=== PATIENT | female | born 1945 | race Caucasian/White ===

== ENCOUNTER 2023-10-06 12:22 | Emergency (ER) | payer MEDICARE, OTHER, SELFPAY ==
[2023-10-06] VITALS (13 sets, daily range): BP systolic 152–208; BP diastolic 58–108; PULSE 67–79; RESP 12–23; TEMP 36.6; O2SAT 95–98
--- NOTE | 2023-10-06 12:30 | RT.EKG_ITS ---
APPROVED REPORT Exam: Resting ECG Reason for Exam: Dizziness Patient Location: E HR:65 bpm ECG Measurements Heart Rate 65 AXIS UT 223 P 23 QRSd 139 QRS -44 QT 424 T 125 QTc 440 Conclusion Sinus rhythm...normal P axis, V-rate 60- 99 Prolonged UT interval...UT >220, V-rate 50- 90 Left bundle branch block...QRSd>120, broad/notched R sinus rhtyhm, left axis, LBBB
--- NOTE | 2023-10-06 12:34 | ED.GENADUL_ITS ---
Discharge Plan Disposition Patient Disposition: Home Condition: Stable Discharge Details Clinical Impression: Dizziness of unknown cause Primary Care Provider: Cherry,Local ED Provider: Jeffrey Altamirano Home Meds and New Rx's Prescriptions: Continued atorvastatin 40 mg tablet 40 mg PO DAILY aspirin [Adult Low Dose Aspirin] 81 mg tablet,delayed release (DR/EC) 81 mg PO DAILY midodrine 5 mg tablet 5 mg PO TID Rx Instructions: do not give last dose of day after 6PM or within 4 hrs of bedtime clopidogrel 75 mg tablet 75 mg PO DAILY pantoprazole [Protonix] 40 mg tablet,delayed release (DR/EC) 40 mg PO DAILY fludrocortisone 0.1 mg tablet 0.1 mg PO DAILY cyanocobalamin (vitamin B-12) 1,000 mcg tablet 1,000 mcg PO QMONTH C Complex 1,000 mg tablet extended release 1,000 mg PO DAILY cholecalciferol (vitamin D3) [D3 DOTS] 50 mcg (2,000 unit) tablet 50 mcg PO DAILY Mag Glycinate 100 mg tablet 200 mg PO DAILY levothyroxine [Levo-T] 50 mcg tablet 50 mcg PO DAILY Discharge Instructions Instructions: Dizziness (ED) Additional Instructions: You were seen in the emergency department for your dizziness that is mechelle rodriguez. You state that you have dizziness when he stands up too fast with known orthostatic hypotension, you have known congestive heart failure and a history of TIAs. You are on optimal therapy for transient ischemic attack including high-dose statin as well as aspirin and clopidogrel which is dual antiplatelet therapy and not anticoagulation/blood thinners. Your cardiac workup is negative, you have a mild increase of your BNP which is a marker of heart failure but this is nonspecific and you have no evidence of pulmonary edema on chest x-ray, your chronic heart failure may be playing a role in your dizziness as your heart is failing to keep your brain oxygenated when you change positions. You chose not to be admitted for transient ischemic attack for an MRI. You wished to be discharged home, you engaged in shared decision-making and risk decision making and understood that you need to return to the emergency department immediately for any symptoms of neurological changes and that this is a time sensitive presentation to the ED for any suspicion of stroke, we discussed 4-hour window for intervention of any stroke. I think you need to speak with your PCP about getting a prior authorization done for an MRI/MRA of your Head & Neck. 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 This is a normal anatomical variant in something like 5% of the general population. This may be contributing to transient dizziness, especially coupled with heart failure and orthostatic hypotension. Please follow-up with your primary care provider, you may attempt to have an outpatient MRI done while here in [place], this would have been the final study performed through an inpatient admission, if you wished to be admitted for po ssible TIA. Referrals: Prachi Skinner NP [NURSE PRACTITIONER] - Discharge Data Discharge Date/Time-TO BE ENTERED AT DEPARTURE: 10/06/23 15:49 HPI General Date/Time Provider Initiated Documentation: 10/06/23 12:34 . HPI Narrative: 78 year-old female presents to ED today by POV/ambulating with her sister and niece with a chief complaint of dizziness, L-hand numbness, and some possible gait abnormalities this past Friday per family with onset chronically. Patient states they get dizzy when they stand up frequently, denies palpitations. Quality described as tingling in the L mouth/lip, L hand numbness/tingling, dizziness, gait abnormality per family 3 days ago, no radiation to slurred speech, confusion, falls, trauma, headstrike, denies visual changes, denies nausea/vomiting, denies fever, denies chest pain/shortness of breath. Severity is described as moderate. Palliating factors include nothing specific attempted. Provoking factors include nothing specific. Events leading up to the incident/Associated Symptoms: Patient reports TIA in the past, denies significant residual deficits. Patient not anticoagulated, is on DAPT & statin. Related Data Home Medications Medication Instructions Recorded Confirmed ascorbic acid (vitamin C) 1,000 mg 1,000 mg PO DAILY 10/06/23 10/06/23 tablet,extended release (C Complex) aspirin 81 mg tablet,delayed 81 mg PO DAILY 10/06/23 10/06/23 release (Adult Low Dose Aspirin) atorvastatin 40 mg tablet 40 mg PO DAILY 10/06/23 10/06/23 cholecalciferol (vitamin D3) 50 50 mcg PO DAILY 10/06/23 10/06/23 mcg (2,000 unit) tablet (D3 DOTS) clopidogrel 75 mg tablet 75 mg PO DAILY 10/06/23 10/06/23 cyanocobalamin (vitamin B-12) 1,000 mcg PO QMONTH 10/06/23 10/06/23 1,000 mcg tablet fludrocortisone 0.1 mg tablet 0.1 mg PO DAILY 10/06/23 10/06/23 levothyroxine 50 mcg tablet 50 mcg PO DAILY 10/06/23 10/06/23 (Levo-T) magnesium glycinate 100 mg tablet 200 mg PO DAILY 10/06/23 10/06/23 (Mag Glycinate) midodrine 5 mg tablet 5 mg PO TID 10/06/23 10/06/23 pantoprazole 40 mg tablet,delayed 40 mg PO DAILY 10/06/23 10/06/23 release (Protonix) Allergies Allergy/AdvReac Type Severity Reaction Status Date / Time No Known Allergies Allergy Unverified 10/06/23 12:30 General Stated Complaint: Dizzy/Sync RY: 3 Review of Systems All systems reviewed & are unremarkable except as noted in HPI and below Exam Narrative Exam Narrative: GENERAL APPEARANCE: Well-nourished, non-toxic, awake and alert, atraumatic, no acute distress. SKIN: Warm, pink, dry, intact, without rashes/lesions/ulcerations. HEAD: Normocephalic, atraumatic, normal hair distribution for gender/age. EYES: Pupils PERRLA, EOMs intact without nystagmus, normal conjunctiva, no exudates on lids/lashes, vision grossly intact, visual florentino intact. ENT: Nares patent, no circumoral cyanosis, no facial swelling. NECK: Supple, trachea midline, painless cervical ROM, no carotid bruit. LUNGS/CHEST: Lungs CTA bilaterally- no rhonchi/rales/wheezes diffusely, non- labored respirations, normal A/P diameter, symmetrical expansion, no chest wall deformity HEART (CV/PV): Regular rate and rhythm without murmur, no peripheral edema, no JVD. ABDOMEN: Soft, non-distended, no guarding, no tenderness. MSK: Normal ROM, no swelling/deformity to bilateral UEs or LEs, moving all extremities without weakness, no cyanosis, spine midline without tenderness, normal curvature. NEURO: Mental Status AAOx4 - alert to person, place, time, events No facial droop, no forehead involvement, no dysmetria with FNF/heel-hernández Motor: No focal weakness - strength 5/5 in bilateral UEs and LEs, proximal and distal, symmetric. Sensory: sensation intact to light touch globally. Gait normal: patient ambulated without ataxia into ED room. PSYCH: euthymic, cooperative, pleasant, appropriate speech Course Vital Signs Vital signs: Vital Signs Temperature 36.6 C 10/06/23 12:24 Pulse 79 10/06/23 12:24 Respiratory Rate 18 10/06/23 12:24 Blood Pressure 152/108 H 10/06/23 12:24 Pulse Oximetry 98 10/06/23 12:24 Temperature 36.6 C 10/06/23 12:24 Temperature Source Skin 10/06/23 12:24 Pulse 79 10/06/23 12:24 Respiratory Rate 18 10/06/23 12:24 Respiratory Effort Normal 10/06/23 12:29 Blood Pressure 152/108 H 10/06/23 12:24 Blood Pressure Position Sitting 10/06/23 12:24 Pulse Oximetry 98 10/06/23 12:24 Oxygen Delivery Method Room Air 10/06/23 12:24 Oxygen Flow Rate 0 10/06/23 12:24 Medical Decision Making This dictation utilizes [id number] dictation software and may contain unedited grammatical errors. 78 year-old female presents to ED today by POV/ambulating with her sister and niece with a chief complaint of dizziness, L-hand numbness, and some possible gait abnormalities this past Friday per family with onset chronically. Patient states they get dizzy when they stand up frequently, denies palpitations. Quality described as tingling in the L mouth/lip, L hand numbness/tingling, dizziness, gait abnormality per family 3 days ago, no radiation to slurred speech, confusion, falls, trauma, headstrike, denies visual changes, denies nausea/vomiting, denies fever, denies chest pain/shortness of breath. Severity is described as moderate. Palliating factors include nothing specific attempted. Provoking factors include nothing specific. Events leading up to the incident/Associated Symptoms: Patient reports TIA in the past, denies significa nt residual deficits. Patient not anticoagulated, is on DAPT & statin. Patients' medical history: Home and endorses TIAs, hyperlipidemia, obesity, chronic venous insufficiency, chronic systolic CHF, orthostatic hypotension. Family and social history: lives in [place], visting family, no sick contacts. Pertinent exam findings / vital signs include neuro intact with an NIH of 0, benign cardiopulmonary exam, benign abdomen, nontoxic vitals. Differential / pathologies of concern include Orthostatic Hypotension, Dizziness, TIA, Cardiogenic Dizziness. Diagnostic studies of: -CBC, CMP, TSH, troponin I, BNP, magnesium, urinalysis, EKG, XR chest, CTA head and neck. -CBC shows no leukocytosis, no anemia -CMP shows no major electrolyte abnormality, mildly elevated BUN at 19 with a normal creatinine -Troponin negative, BNP is 1143 with unknown baseline in the setting of chronic CHF -TSH within normal limits -UA benign -CXR no acute findings. -CTA Head & Neck shows no acute intracranial pathology. Some stenosis of carotids <10%, L vertebral artery developmentally thin- which is a normal anatomic variant, could be a cause of symptoms. -EKG shows sinus rhythm with a left bundle branch block of unknown chronicity, rate 65, QTc/QTc normal, P waves present with prolonged LA interval, does not appear to meet any Sgarbossa criteria - attempting to obtain prior EKGs from [facility], Dr. Dangelo Mercado is Medical Fee Clerk. Interventions of: -none. ED Course/Assessment/Plan: 78-year-old female presents with longstanding history of orthostatic hypotension, was having dizziness when standing up too fast, reports some tongue numbness and left hand numbness intermittently, family reports that 3 days ago she had some trouble walking after standing up too fast. She has history of TIAs and is on optimal therapy for TIA including high-dose statin as well as dual antiplatelet therapy, her wearing apparel shaker in [place] encouraged her to present to the ED, she has known CHF with a BNP of 1100 with unknown baseline- we did have records faxed to us. She denies any chest pain or syncope, denies any palpitations with these episodes, I suspect she may be having bouts of orthostatic hypotension, her EKG shows left bundle branch block that does not meet Sgarbossa criteria that is consistent with prior was faxed to us, other labs are within normal limits, engaged the patient in admission decision and they engaged in shared decision-making, they state that they do not want to be admitted for an MRI only for TIA workup as they are likely on all other optimal therapies for TIA at this time. I encouraged him to return to the emergency department immediately for any neurological symptoms or changes, I did stressed to them that they need to present with an minutes to hours of any symptomatic change in her mental status. Patient has had multiple admissions for TIAs in the past- the onset of this dizziness is confounding with chronic orthostatic hypotension, and patient does not want admission for MRI and TIA work-up at this time. Patient engaged in risk discussion and shared decision making regarding need for emergent return for any stroke symptoms. Findings not consistent with CVA, ACS, Cerebellar CVA, Arrhythmia, Electrolyte Abnormality, Brain Mass. Disposition of Dizziness of Unknown Cause. Patient verbalized understanding of the plan and return to ED criteria and engaged in shared decision making. Medical Records Medical records reviewed: Yes I reviewed the patient's medical records. Imaging Data Radiologic Study: Attestation: I personally reviewed and interpreted this imaging study as follows: Imaging: CT Scan Radiologist's impression: EXAM: CT BRAIN NECK CTA CLINICAL HISTORY: dizziness, L hand numbness. TECHNIQUE: Imaging Protocol: Axial CT angiography was performed with multi- slice acquisition and multi-planar and/or 3D reconstructions. CONTRAST MATERIAL: Intravenous: Omnipaque 350 Contrast volume:structured data in ml COMPARISON: No exams were available for comparison FINDINGS: CTA Neck W: Aortic arch anatomy: The aortic arch anatomy is conventional and there is no significant stenosis at the origin of the great vessels off of the aortic arch. No intimal flap evident. Anterior circulation: Both common carotid arteries ascend with normal luminal diameters. At the level the carotid bulbs and proximal internal carotid arteries there is minimal plaque without hemodynamically significant stenosis evident on the left side. On the right side there is some calcified mural plaque at the bulb and proximal right ICA but without significant stenosis. Stenosis at this level is estimated approximately 10 percent. Above this level the right ICA in the upper neck is patent.. Posterior circulation: The non dominant left vertebral artery originates as an independent vessel off the aortic arch (instead of off the left subclavian artery). The dominant right vertebral artery originates in conventional fashion off of the right subclavian artery and there is no significant stenosis at its origin. At the skull base the vertebral arteries predominately formed by the dominant patent right vertebral artery. The left vertebral artery terminates as the left posterior inferior cerebellar artery. No evidence of vertebral artery dissection CTA Brain W: Anterior circulation: Both internal carotid arteries are patent in the skull base-carotid canals as well as within the cavernous sinuses. The supraclinoid aspects of the ICAs are patent. Both A1 segments are patent as are the anterior cerebral arteries and there is no evidence of aneurysm at the level of the anterior communicating artery. Both middle cerebral arteries are patent with no evidence of significant stenosis nor intraluminal thrombus. There also no aneurysms of these vessels. Posterior circulation: Basilar artery ascends with normal luminal diameter. Distally it terminates as patent bilateral posterior cerebral arteries There is no evidence of aneurysm at the tip of the basilar artery nor elsewhere in the [id number]. CT BRAIN: There is no evidence of intracranial hemorrhage, mass effect, or shift of midline structures. There are no extra-axial fluid collections. Ventricles are not enlarged or shifted. There are no ring enhancing lesions in the brain and no abnormal meningeal enhancement. IMPRESSION: 1. Patent carotid arteries in the neck. No hemodynamically significant stenosis. 2. Patent vertebral arteries. Right vertebral artery is patent. The left vertebral artery is a thin artery which originates as an independent vessel off the aortic arch and terminates at the skull base as posterior inferior cerebellar artery. 3. Patent intracranial arteries. Also no aneurysms nor obvious vascular malformation. 4. If clinically indicated follow-up MRI can be performed. Radiologic Study #2: Attestation: I personally reviewed and interpreted this imaging study as follows: Imaging: X-Ray Radiologist's impression: EXAM: XR CHEST 2V PA LATERAL CLINICAL HISTORY: dizziness. TECHNIQUE: 2D digital imaging was performed. COMPARISON: No exams were available for comparison FINDINGS: 2 views: Heart size is normal. The mediastinum is not widened. Lungs are clear. No infiltrates nor pleural effusions. IMPRESSION: No acute pulmonary findings. Lab Data Lab results reviewed: Yes I reviewed the patient's lab results. Labs: Laboratory Tests Range/Units 10/06/23 10/06/23 13:00 13:04 WBC (4.4-10.8) 10^3/uL 6.15 RBC (3.93-5.22) 10^6/uL 3.85 L Hgb (11.2-15.7) g/dL 11.8 Hct (36.0-46.0) % 36.0 MCV (80-95) fL 94 MCH (27.0-33.0) pg 30.6 MCHC (32.0-36.0) % 32.8 RDW (11.7-14.6) % 13.3 Plt Count (130-400) 10^3/uL 192 MPV (8.0-11.0) fL 9.3 Immature Gran % % 0.3 Neutrophils % % 63.6 Lymphocytes % % 25.4 Monocytes % % 8.0 Eosinophils % % 2.0 Basophils % % 0.7 Nucleated RBC % (0.0-0.3) % 0.0 Absolute Neutrophils (1.2-6.7) 10^3/uL 3.92 Absolute Lymphocytes (1.2-3.4) 10^3/uL 1.56 Absolute Monocytes (0.1-0.8) 10^3/uL 0.49 Absolute Eosinophils (0.0-0.7) 10^3/uL 0.12 Absolute Basophils (0.0-0.2) 10^3/uL 0.04 Sodium (136-145) mmol/L 140 Potassium (3.5-5.1) mmol/L 4.3 Chloride (98-107) mmol/L 105 Carbon Dioxide (21.0-32.0) mmol/L 28.6 Anion Gap (3-11) mmol/L 6.4 BUN (7-18) mg/dL 19 H Creatinine (0.55-1.02) mg/dL 0.9 Est GFR (CKD-EPI 2020) (mL/min/1.73m2) 64.63 Glucose (74-106) mg/dL 87 Calcium (8.5-10.1) mg/dL 9.1 Magnesium (1.8-2.4) mg/dL 2.1 Total Bilirubin (0.2-1.0) mg/dL 0.5 AST (15-37) U/L 19 ALT (14-59) U/L 22 Alkaline Phosphatase (46-116) U/L 97 Troponin I (< or =60) ng/L < 50 NT-Pro-B Natriuret Pep (<300) pg/mL 1143 H Total Protein (6.4-8.2) g/dL 6.9 Albumin (3.4-5.0) g/dL 3.7 TSH (0.36-3.74) uIU/mL 1.41 Urine Color (Yellow) Yellow Urine Clarity (Clear) Clear Urine pH (5-8) 6.0 Ur Specific Imperial (1.005-1.025) 1.015 Urine Protein (Neg-Trace) mg/dL Negative Urine Ketones (Negative) mg/dL Negative Urine Blood (Negative) Negative Urine Nitrite (Negative) Negative Urine Bilirubin (Negative) Negative Urine Urobilinogen (Up to 0.2) mg/dL 0.2 Ur Leukocyte Esterase (Negative) Negative Urine Glucose (Negative) mg/dL Negative Quality:SDOH Health Related Social Needs: No Data to Display PFSH All Active Problems (Updated 10/06/23 @ 15:19 by NUVIA Murillo) Dizziness of unknown cause (Acute) Social History Smoking/Tobacco Use Status: Never Smoking risk assessment performed?: Yes Alcohol Intake: current Alcohol Intake frequency: holidays/special occasions only Substance use type: does not use
--- NOTE | 2023-10-06 12:45 | DI.CT_ITS ---
Exam(s) CT BRAIN NECK CTA EXAM: CT BRAIN NECK CTA CLINICAL HISTORY: dizziness, L hand numbness. TECHNIQUE: Imaging Protocol: Axial CT angiography was performed with multi-slice acquisition and mu lti-planar and/or 3D reconstructions. CONTRAST MATERIAL: Intravenous: Omnipaque 350 Contrast volume:structured data in ml COMPARISON: No exams were available for comparison FINDINGS: CTA Neck W: Aortic arch anatomy: The aortic arch anatomy is conventional and there is no significant stenosis at the origin of the great vessels off of the aortic arch. No intimal flap evident. Anterior circulation: Both common carotid arteries ascend with normal luminal diameters. At the level the carotid bulbs and proximal internal carotid arteries there is minimal plaque without hemodynamically significant stenosis evident on the left side. On the right side there is some calc ified mural plaque at the bulb and proximal right ICA but without significant stenosis. Stenosis at this level is estimated approximately 10 percent. Above this level the right ICA in the upper neck i s patent.. Posterior circulation: The non dominant left vertebral artery originates as an independent vessel off the aortic arch (inste ad of off the left subclavian artery). The dominant right vertebral artery originates in conventiona l fashion off of the right subclavian artery and there is no significant stenosis at its origin. At the skull base the vertebral arteries predominately formed by the dominant patent right vertebral art claudio. The left vertebral artery terminates as the left posterior inferior cerebellar artery. No evidence of vertebral artery dissection CTA Brain W: Anterior circulation: Both internal carotid arteries are patent in the skull base-carotid canals as well as within the cave rnous sinuses. The supraclinoid aspects of the ICAs are patent. Both A1 segments are patent as are the anterior cer ebral arteries and there is no evidence of aneurysm at the level of the anterior communicating artery . Both middle cerebral arteries are patent with no evidence of significant stenosis nor intraluminal th rombus. There also no aneurysms of these vessels. Posterior circulation: Basilar artery ascends with normal luminal diameter. Distally it terminates as patent bilateral post erior cerebral arteries There is no evidence of aneurysm at the tip of the basilar artery nor elsewhere in the [id number] is. CT BRAIN: There is no evidence of intracranial hemorrhage, mass effect, or shift of midline structures. There are no extra-axial fluid collections. Ventricles are not enlarged or shifted. There are no ring enh ancing lesions in the brain and no abnormal meningeal enhancement. IMPRESSION: 1. Patent carotid arteries in the neck. No hemodynamically significant stenosis. 2. Patent vertebral arteries. Right vertebral artery is patent. The left vertebral artery is a thin artery which originates as an independent vessel off the aortic arch and terminates at the skull bas e as posterior inferior cerebellar artery. 3. Patent intracranial arteries. Also no aneurysms nor obvious vascular malformation. 4. If clinically indicated follow-up MRI can be performed. Findings called by myself to ER provider. RADIATION DOSE DELIVERED: 1,885.04mGy.cm Total DLP DATA REPOSITORY: All CT scans at this facility are submitted to the National Radiology Data Registry (NRDR) Dose Index Registry (DIR) with the [employer] ([employer]). RADIATION OPTIMIZATION: All CT scans at this facility use at least one of these dose optimization te chniques: automated exposure control; mA and/or kV adjustment per patient size (includes targeted exa ms where dose is matched to clinical indication); or iterative reconstruction.
[2023-10-06 13:06] LABS: Abs Immature Grans 0.02 10^3/uL (0.0-0.06); Absolute Basophil Count 0.04 10^3/uL (0.0-0.2); Absolute Eosinophil Count 0.12 10^3/uL (0.0-0.7); Absolute Lymphocyte Count 1.56 10^3/uL (1.2-3.4); Absolute Monocyte Count 0.49 10^3/uL (0.1-0.8); Absolute Neutrophil Count 3.92 10^3/uL (1.2-6.7); Basophils % 0.7 %; HGB 11.8 g/dL (11.2-15.7); Immature Grans % 0.3 %; Lymphocytes % 25.4 %; MCH 30.6 pg (27.0-33.0); MCHC 32.8 % (32.0-36.0); MCV 94 fL (80-95); MPV 9.3 fL (8.0-11.0); Neutrophils % 63.6 %; Platelet Count 192 10^3/uL (130-400); RBC 3.85 10^6/uL (3.93-5.22); RDW 13.3 % (11.7-14.6); RDW-SD 45.3 fL; WBC 6.15 10^3/uL (4.4-10.8)
[2023-10-06 13:13] LABS: Bilirubin Negative (Negative); Blood Negative (Negative); Clarity Clear (Clear); Glucose Negative (Negative); Ketones Negative (Negative); Leukocyte Esterase Negative (Negative); Nitrite Negative (Negative); Specific Gravity 1.015 (1.005-1.025); Urobilinogen 0.2 mg/dL (Up to 0.2)
[2023-10-06 13:35] LABS: ALT 22 U/L (14-59); AST 19 U/L (15-37); Albumin 3.7 g/dL (3.4-5.0); Alkaline Phosphatase 97 U/L (46-116); Anion Gap 6.4 mmol/L (3-11); BUN 19 mg/dL (7-18); Bilirubin, Total 0.5 mg/dL (0.2-1.0); CO2 28.6 mmol/L (21.0-32.0); CREATININE 0.9 mg/dL (0.55-1.02); Calcium 9.1 mg/dL (8.5-10.1); Chloride 105 mmol/L (98-107); Estimated GFR 64.63 (mL/min/1.73m2); Glucose 87 mg/dL (74-106); Magnesium 2.1 mg/dL (1.8-2.4); NT-proBNP 1143 pg/mL (<300); Potassium 4.3 mmol/L (3.5-5.1); Sodium 140 mmol/L (136-145); TSH (W/Ref FT4) 1.41 uIU/mL (0.36-3.74); Total Protein 6.9 g/dL (6.4-8.2); Troponin I < 50 ng/L (< or =60)
[2023-10-06] MEDS: Normal Saline - Diluent 50 ML VIAL IJ (13:58)
[2023-10-06] MEDS: Omnipaque 350 MG/ML 100 ML BTL IJ (13:59)
--- NOTE | 2023-10-06 14:22 | DI.RAD_ITS ---
Exam(s) XR CHEST 2V PA LATERAL EXAM: XR CHEST 2V PA LATERAL CLINICAL HISTORY: dizziness. TECHNIQUE: 2D digital imaging was performed. COMPARISON: No exams were available for comparison FINDINGS: 2 views: Heart size is normal. The mediastinum is not widened. Lungs are clear. No infiltrates nor pleural effusions. IMPRESSION: No acute pulmonary findings. DATA REPOSITORY: RADIATION DOSE DELIVERED:
== END 2023-10-06 15:49 | disposition home or self-care (01) ==
PROVIDERS: Emergency Provider Physician Assistant
DX: R42 Dizziness and giddiness (principal); I44.7 Left bundle-branch block, unspecified; I95.1 Orthostatic hypotension; I50.9 Heart failure, unspecified; Z79.82 Long term (current) use of aspirin; Z86.73 Personal history of transient ischemic attack (TIA), and cerebral infarction without residual deficits
CPT/HCPCS: 36415; 70496; 70498; 80053; 93005; 99285; 71046; 81003; 83735; 83880; 84443; 84484; 85025; 93010; 99284; J3490

== ENCOUNTER 2023-10-09 12:16 | Inpatient (IN) | payer MEDICARE, OTHER, SELFPAY ==
[2023-10-09] VITALS (13 sets, daily range): BP systolic 79–177; BP diastolic 50–98; PULSE 63–90; RESP 13–18; TEMP 36.2–36.7; O2SAT 91–98
--- NOTE | 2023-10-09 12:15 | RT.EKG_ITS ---
APPROVED REPORT Exam: Resting ECG Reason for Exam: Dizzy Patient Location: E HR:68 bpm ECG Measurements Heart Rate 68 AXIS MI 215 P 62 QRSd 139 QRS -1 QT 416 T 155 QTc 443 Conclusion sinus 68 no chnage from prior no stemi
--- NOTE | 2023-10-09 12:45 | DI.MRI_ITS ---
Exam(s) MR BRAIN WO EXAM: MR BRAIN WO CLINICAL HISTORY: SYNCOPE TECHNIQUE: Multiplanar multisequence MRI of the brain was performed. COMPARISON: CT CT BRAIN NECK CTA from 10/06/2023 FINDINGS: VENTRICLES AND EXTRA AXIAL SPACES: Normal in size and morphology for the patient's age. MIDLINE SHIFT: None. CEREBRAL PARENCHYMA: No focus of restricted diffusion to suggest acute infarct. No space-occupying le lior identified. There are multiple areas of hyperintense signal seen in the white matter on the FLAI R and T2 weighted images most consistent with chronic microvascular ischemic disease. HEMORRHAGE: None. BRAINSTEM/CEREBELLUM: Normal. CALVARIUM: Normal. VISUALIZED PARANASAL SINUSES/MASTOIDS:Clear. MILLE LACS OF CALLE: Normal flow void. PITUITARY GLAND: Unremarkable. OTHER FINDINGS: None. IMPRESSION: No evidence of an acute territorial infarct. DATA REPOSITORY:
[2023-10-09 13:06] LABS: Abs Immature Grans 0.01 10^3/uL (0.0-0.06); Absolute Basophil Count 0.03 10^3/uL (0.0-0.2); Absolute Eosinophil Count 0.09 10^3/uL (0.0-0.7); Absolute Monocyte Count 0.55 10^3/uL (0.1-0.8); Absolute Neutrophil Count 4.49 10^3/uL (1.2-6.7); Basophils % 0.4 %; Eosinophils % 1.3 %; HCT 40.1 % (36.0-46.0); HGB 12.9 g/dL (11.2-15.7); Immature Grans % 0.1 %; Lymphocytes % 22.5 %; MCH 30.4 pg (27.0-33.0); MCHC 32.2 % (32.0-36.0); MCV 94 fL (80-95); MPV 9.8 fL (8.0-11.0); Monocytes % 8.2 %; Neutrophils % 67.5 %; Platelet Count 231 10^3/uL (130-400); RBC 4.25 10^6/uL (3.93-5.22); RDW 13.2 % (11.7-14.6); RDW-SD 45.8 fL; WBC 6.67 10^3/uL (4.4-10.8)
[2023-10-09 13:26] LABS: NT-proBNP 1522 pg/mL (<300)
[2023-10-09 13:30] LABS: ALT 25 U/L (14-59); AST 17 U/L (15-37); Albumin 4.1 g/dL (3.4-5.0); Alkaline Phosphatase 116 U/L (46-116); Anion Gap 7.1 mmol/L (3-11); BUN 17 mg/dL (7-18); Bilirubin, Total 0.5 mg/dL (0.2-1.0); CO2 30.9 mmol/L (21.0-32.0); CREATININE 0.9 mg/dL (0.55-1.02); Calcium 9.9 mg/dL (8.5-10.1); Chloride 102 mmol/L (98-107); Estimated GFR 64.63 (mL/min/1.73m2); Glucose 84 mg/dL (74-106); Magnesium 2.3 mg/dL (1.8-2.4); Potassium 4.1 mmol/L (3.5-5.1); Sodium 140 mmol/L (136-145); TSH 1.63 uIU/Ml (0.36-3.74); Total Protein 7.6 g/dL (6.4-8.2); Troponin I < 50 ng/L (< or =60)
--- NOTE | 2023-10-09 14:32 | W.ED.GENAD ---
Discharge Plan Disposition Patient Disposition: Admit to [facility] Condition: Stable Discharge Details Chief Complaint: [id number] Clinical Impression: Dizziness of unknown cause, Pre-syncope, Hypertension Primary Care Provider: Cherry,Local ED Provider: Jermaine Campos Home Meds and New Rx's Prescriptions: No Action atorvastatin 40 mg tablet 40 mg PO DAILY aspirin [Adult Low Dose Aspirin] 81 mg tablet,delayed release (DR/EC) 81 mg PO DAILY midodrine 5 mg tablet 5 mg PO TID Rx Instructions: do not give last dose of day after 6PM or within 4 hrs of bedtime clopidogrel 75 mg tablet 75 mg PO DAILY pantoprazole [Protonix] 40 mg tablet,delayed release (DR/EC) 40 mg PO DAILY fludrocortisone 0.1 mg tablet 0.1 mg PO DAILY cyanocobalamin (vitamin B-12) 1,000 mcg tablet 1,000 mcg PO QMONTH C Complex 1,000 mg tablet extended release 1,000 mg PO DAILY cholecalciferol (vitamin D3) [D3 DOTS] 50 mcg (2,000 unit) tablet 50 mcg PO DAILY Mag Glycinate 100 mg tablet 200 mg PO DAILY levothyroxine [Levo-T] 50 mcg tablet 50 mcg PO DAILY HPI General Date/Time Provider Initiated Documentation: 10/09/23 12:55. Limitations to Documentation: no limitations. Information obtained by: patient. HPI Narrative: 78-year-old female with past medical history of CHF, TIA, hypotensive episodes presents for evaluation of near syncope. She reports that she has had several episodes where she gets very weak and lightheaded and nearly passes out, but does not lose consciousness. She states that she has been evaluated for these episodes. It was thought that they may be from low blood pressure. She takes her blood pressure at home regularly and takes midodrine if her blood pressure is low. She reports that she was recently seen in the emergency department for similar symptoms. She had symptoms of severe weakness last night. She states that the symptoms come on spontaneously. Last for about 20 minutes and then resolved spontaneously after rest. Another episode happened again this morning. These episodes are not associated with headache, chest pain or shortness of breath Related Data Home Medications Medication Instructions Recorded Confirmed ascorbic acid (vitamin C) 1,000 mg 1,000 mg PO DAILY 10/06/23 10/09/23 tablet,extended release (C Complex) aspirin 81 mg tablet,delayed 81 mg PO DAILY 10/06/23 10/09/23 release (Adult Low Dose Aspirin) atorvastatin 40 mg tablet 40 mg PO DAILY 10/06/23 10/09/23 cholecalciferol (vitamin D3) 50 50 mcg PO DAILY 10/06/23 10/09/23 mcg (2,000 unit) tablet (D3 DOTS) clopidogrel 75 mg tablet 75 mg PO DAILY 10/06/23 10/09/23 cyanocobalamin (vitamin B-12) 1,000 mcg PO QMONTH 10/06/23 10/09/23 1,000 mcg tablet fludrocortisone 0.1 mg tablet 0.1 mg PO DAILY 10/06/23 10/09/23 levothyroxine 50 mcg tablet 50 mcg PO DAILY 10/06/23 10/09/23 (Levo-T) magnesium glycinate 100 mg tablet 200 mg PO DAILY 10/06/23 10/09/23 (Mag Glycinate) midodrine 5 mg tablet 5 mg PO TID 10/06/23 10/09/23 pantoprazole 40 mg tablet,delayed 40 mg PO DAILY 10/06/23 10/09/23 release (Protonix) Allergies Allergy/AdvReac Type Severity Reaction Status Date / Time No Known Allergies Allergy Unverified 10/09/23 12:24 General Stated Complaint: [id number] RY: 3 Exam Narrative Exam Narrative: Review of Systems: All systems reviewed & are unremarkable except as noted in HPI and below Well-developed, no acute distress NCAT PERRL, normal conjunctiva RRR, no murmur, blood pressure elevated Unlabored respiratory effort, no hypoxia or tachypnea, clear bilaterally Nondistended abdomen , nontender Extremities w/o deformity, no cyanosis, TRACE edema No rashes or lesions. no focal neurologic deficits Appropriate mood and affect Course Vital Signs Vital signs: Vital Signs Temperature 36.7 C 10/09/23 12:19 Pulse 63 10/09/23 12:19 Respiratory Rate 18 10/09/23 12:19 Blood Pressure 174/98 H 10/09/23 12:19 Pulse Oximetry 97 10/09/23 12:19 Temperature 36.7 C 10/09/23 12:19 Temperature Source Temporal Artery Scan 10/09/23 12:19 Pulse 73 10/09/23 13:13 Pulse 77 10/09/23 13:14 Respiratory Rate 17 10/09/23 13:14 Respiratory Effort Normal, Non-Labored 10/09/23 12:25 Blood Pressure 177/80 H 10/09/23 13:13 Blood Pressure Mean 112 10/09/23 13:13 Blood Pressure Position Sitting 10/09/23 12:19 Pulse Oximetry 98 10/09/23 13:13 Oxygen Delivery Method Room Air 10/09/23 12:19 Oxygen Flow Rate 0 10/09/23 12:19 Lab/Test Results Lab/Test Results: Laboratory Tests Range/Units 10/09/23 12:40 WBC (4.4-10.8) 10^3/uL 6.67 RBC (3.93-5.22) 10^6/uL 4.25 Hgb (11.2-15.7) g/dL 12.9 Hct (36.0-46.0) % 40.1 MCV (80-95) fL 94 MCH (27.0-33.0) pg 30.4 MCHC (32.0-36.0) % 32.2 RDW (11.7-14.6) % 13.2 Plt Count (130-400) 10^3/uL 231 MPV (8.0-11.0) fL 9.8 Immature Gran % % 0.1 Neutrophils % % 67.5 Lymphocytes % % 22.5 Monocytes % % 8.2 Eosinophils % % 1.3 Basophils % % 0.4 Nucleated RBC % (0.0-0.3) % 0.0 Absolute Neutrophils (1.2-6.7) 10^3/uL 4.49 Absolute Lymphocytes (1.2-3.4) 10^3/uL 1.50 Absolute Monocytes (0.1-0.8) 10^3/uL 0.55 Absolute Eosinophils (0.0-0.7) 10^3/uL 0.09 Absolute Basophils (0.0-0.2) 10^3/uL 0.03 Sodium (136-145) mmol/L 140 Potassium (3.5-5.1) mmol/L 4.1 Chloride (98-107) mmol/L 102 Carbon Dioxide (21.0-32.0) mmol/L 30.9 Anion Gap (3-11) mmol/L 7.1 BUN (7-18) mg/dL 17 Creatinine (0.55-1.02) mg/dL 0.9 Est GFR (CKD-EPI 2020) (mL/min/1.73m2) 64.63 Glucose (74-106) mg/dL 84 Calcium (8.5-10.1) mg/dL 9.9 Magnesium (1.8-2.4) mg/dL 2.3 Total Bilirubin (0.2-1.0) mg/dL 0.5 AST (15-37) U/L 17 ALT (14-59) U/L 25 Alkaline Phosphatase (46-116) U/L 116 Troponin I (< or =60) ng/L < 50 NT-Pro-B Natriuret Pep (<300) pg/mL 1522 H Total Protein (6.4-8.2) g/dL 7.6 Albumin (3.4-5.0) g/dL 4.1 TSH (0.36-3.74) uIU/Ml 1.63 Medical Decision Making Emergent evaluation of presyncope. Initial differential includes TIA, CHF exacerbation, cardiac dysrhythmia. Patient was evaluated in the emergency department recently and I have reviewed that medical record. A CTA of the head and neck was obtained, no signs of abnormality. I discussed with the radiologist who recommends noncontrast brain MRI for further evaluation. At this time her blood pressure is not low, but I did review her home log and noted several episodes of blood pressure in the 60s, during these times she does take midodrine. EKG is not acutely ischemic. Plan for lab work and cardiac monitoring in addition to the MRI. Lab work reviewed. No leukocytosis or anemia. Normal platelet count. Electrolytes without derangement. Normal renal function. Troponin is not elevated. BMP does have a slight increase from earlier this week. Will give IV Lasix. Chest x-ray does not reveal significant signs of volume overload. MRI has been performed and there is no evidence of an acute infarct. Her blood pressure is noted to be persistently elevated during the time here in the emergency department. I suspect that this might be because she took midodrine when her blood pressure was not low. Given these ongoing and seemingly to be increasing in frequency of presyncopal symptoms, the patient would benefit from telemetry monitoring as well as blood pressure monitoring. Discussed with the hospitalist who will admit the patient to their service for further management. Medical Records Medical records reviewed: Yes I reviewed the patient's medical records. Lab Data Lab results reviewed: Yes I reviewed the patient's lab results. Quality:SDOH Health Related Social Needs: No Data to Display PFSH All Active Problems (Updated 10/09/23 @ 15:48 by Jermaine Campos MD) Hypertension (Chronic) Pre-syncope (Acute) Dizziness of unknown cause (Acute) Social History Smoking/Tobacco Use Status: Never Smoking risk assessment performed?: Yes Alcohol Intake: current Alcohol Intake frequency: holidays/special occasions only Drug use: Never Substance use type: does not use
--- NOTE | 2023-10-09 15:12 | DI.RAD_ITS ---
Exam(s) XR PORTABLE CHEST AP EXAM: XR PORTABLE CHEST AP CLINICAL HISTORY: WAEKNESS. TECHNIQUE: 2D digital imaging was performed. COMPARISON: No exams were available for comparison FINDINGS: Single AP portable view. Heart size is upper normal. The mediastinum is not widened. Lungs are clear. No infiltrates nor obvious pleural effusions. IMPRESSION: No acute pulmonary findings on this single AP portable view of the chest. DATA REPOSITORY: RADIATION DOSE DELIVERED:
[2023-10-09] MEDS: Furosemide 100 MG/10 ML VIAL 80 MG IVP (15:36)
[2023-10-09] MEDS: Enoxaparin 40 MG/0.4 ML SYR SC (18:02)
--- NOTE | 2023-10-09 18:21 | HPE_ITS ---
Date of service: 10/09/23 Time of Service: 18:22 Assessment and Plan Assessment and plan (1) Pre-syncope: Status: Acute Assessment and plan: Lightheadedness No syncope [employer] VS Given 80 mg lasix in ED, BP 93/55 feeling like a limp dish rag; does not take IVF bolus 500 ml Check labs in am Watch for signs of dehydration from lasix and overhydration from bolus (2) Dizziness of unknown cause: Status: Acute Assessment and plan: as above (3) Hypertension: Status: Resolved Assessment and plan: usually hypotensive and takes midodrine prn Today BP - 177/80 in ED; did take midodrine at home this morning After 80 mg lasix IV in ED BP 93/55 (4) Hypothyroid: Status: Chronic Assessment and plan: TSH 1.63 Continue home dose of levothyroxine History of Present Illness History of Present Illness Chief Complaint: Lightheadedness Narrative: This is an 78-year-old female patient who presented with a history of CHF, TIA, and hypotensive episodes, for evaluation for near syncope. She described several instances where she experienced extreme weakness and lightheadedness, nearly leading to loss of consciousness but without actually fainting. These episodes have been previously evaluated, with low blood pressure suspected as the cause. She monitors her blood pressure at home and takes midodrine if it is low. She came to the emergency department due to similar symptoms and experienced severe weakness last night and was treated and discharged, followed by another episode this morning. Each episode lasts approximately 20 minutes and resolves spontaneously after rest. Patient denied associated symptoms such as headache, chest pain, or shortness of breath. The patient's blood pressure was not low at the time of evaluation, review of her home blood pressure log revealed multiple episodes of hypotension, during which she takes midodrine. An EKG did not show acute ischemia. Laboratory workup, including complete blood count, electrolytes, renal function, and troponin, did not indicate significant abnormalities, though there was a slight increase in proBNP 1522. 80 mg of IV Lasix was administered due to this finding, despite no significant signs of volume overload on chest x-ray. Patient had a brain MRI which did not reveal any acute infarcts. EKG sinus rhythm at 68 bpm. The patient's blood pressure remained elevated during her time in the emergency department, possibly due to midodrine intake despite normotension. Considering the increasing frequency of presyncopal symptoms, telemetry monitoring and blood pressure monitoring were recommended. The patient was placed on the medical floor for observation with telemetry. The patient is a full code. Review of Systems All systems reviewed & are unremarkable except as noted in HPI and below PFSH All Active Problems (Updated 10/09/23 @ 18:57 by Annette Bauman NP) Hypothyroid (Chronic) Pre-syncope (Acute) Dizziness of unknown cause (Acute) Social History Smoking/Tobacco Use Status: Never Smoking risk assessment performed?: Yes Alcohol Intake: current Alcohol Intake frequency: holidays/special occasions only Drug use: Never Substance use type: does not use Housing: house Meds Allergies and Home Medications Allergies Allergy/AdvReac Type Severity Reaction Status Date / Time No Known Allergies Allergy Unverified 10/09/23 12:24 Home Medications Medication Instructions Recorded Confirmed Type ascorbic acid (vitamin C) 1,000 mg 1,000 mg PO DAILY 10/06/23 10/09/23 History tablet,extended release (C Complex) aspirin 81 mg tablet,delayed 81 mg PO DAILY 10/06/23 10/09/23 History release (Adult Low Dose Aspirin) atorvastatin 40 mg tablet 40 mg PO DAILY 10/06/23 10/09/23 History cholecalciferol (vitamin D3) 50 50 mcg PO DAILY 10/06/23 10/09/23 History mcg (2,000 unit) tablet (D3 DOTS) clopidogrel 75 mg tablet 75 mg PO DAILY 10/06/23 10/09/23 History cyanocobalamin (vitamin B-12) 1,000 mcg PO QMONTH 10/06/23 10/09/23 History 1,000 mcg tablet fludrocortisone 0.1 mg tablet 0.1 mg PO DAILY 10/06/23 10/09/23 History levothyroxine 50 mcg tablet 50 mcg PO DAILY 10/06/23 10/09/23 History (Levo-T) magnesium glycinate 100 mg tablet 200 mg PO DAILY 10/06/23 10/09/23 History (Mag Glycinate) midodrine 5 mg tablet 5 mg PO TID 10/06/23 10/09/23 History pantoprazole 40 mg tablet,delayed 40 mg PO DAILY 10/06/23 10/09/23 History release (Protonix) Exam Narrative Exam Narrative: Nurses notes and vital signs reviewed. Const General: cooperative, healthy appearing, comfortable, no acute distress and well developed Orientation: oriented x3 [facility] Head: normal to inspection Ears: hearing grossly normal bilaterally, external ears normal and TM's normal bilaterally General nose exam: external nose normal and nares normal Face and sinus: normal facial exam Mouth: oral mucosae normal, lip normal and tongue normal Teeth and gingiva: dentition normal Throat: posterior oropharynx normal Eyes General: appearance normal, both eyes and all related structures Alignment and Position: alignment normal Eyelids: eyelids normal Conjunctivae: conjunctivae normal Sclera: sclerae normal Cornea: corneas normal Pupils: PERRL EOM: EOM intact bilaterally Direct ophthalmoscopy: normal light reflex Neck Neck: normal visual inspection, full ROM and no lymphadenopathy Thyroid: thyroid normal Carotids: normal carotid upstroke Lymphatic: no lymphadenopathy noted Chest Chest: normal inspection of the chest Resp Effort & Inspection: normal respiratory effort and able to speak in complete sentences Auscultation: clear to auscultation bilaterally Cardio Jugular venous pressure: no JVD Rate: regular rate Rhythm: regular rhythm Heart Sounds: S1 normal and S2 normal GI Inspection: normal to inspection Palpation: soft and no hepatosplenomegaly Skin General skin exam: no rashes or lesions noted Neuro General: patient oriented x3 Cranial Nerves: CN's II-XI intact bilaterally Cognition: normal cognition Speech: speech normal Motor: muscle tone normal throughout Psych Appearance: grossly normal Mental Status: mental status grossly normal Speech and Movement: speech and movement normal Mood: congruent mood Affect: normal affect Attitude: cooperative and avoids eye contact Thought Process: normal Thought Content: normal Insight: insight good Judgment: judgment good Results Labs 10/09/23 12:40 10/09/23 12:40 Labs: Laboratory Results - last 24 hr 10/09/23 12:40 WBC 6.67 RBC 4.25 Hgb 12.9 Hct 40.1 MCV 94 MCH 30.4 MCHC 32.2 RDW 13.2 Plt Count 231 MPV 9.8 Immature Gran % 0.1 Neutrophils % 67.5 Lymphocytes % 22.5 Monocytes % 8.2 Eosinophils % 1.3 Basophils % 0.4 Nucleated RBC % 0.0 Absolute Neutrophils 4.49 Absolute Lymphocytes 1.50 Absolute Monocytes 0.55 Absolute Eosinophils 0.09 Absolute Basophils 0.03 Sodium 140 Potassium 4.1 Chloride 102 Carbon Dioxide 30.9 Anion Gap 7.1 BUN 17 Creatinine 0.9 Est GFR (CKD-EPI 2020) 64.63 Glucose 84 Calcium 9.9 Magnesium 2.3 Total Bilirubin 0.5 AST 17 ALT 25 Alkaline Phosphatase 116 Troponin I < 50 NT-Pro-B Natriuret Pep 1522 H Total Protein 7.6 Albumin 4.1 TSH 1.63 Last Vital Signs Temp 36.5 C 10/09/23 16:35 Pulse 87 10/09/23 16:35 Resp 18 10/09/23 16:35 BP 110/70 10/09/23 18:06 Pulse Ox 96 10/09/23 16:35 Time Spent Time spent with Patient: 40-54 minutes Time was spent: preparing to see the patient(eg.review tests), obtaining and/or reviewing separately otained hiistory, ordering medications,tests, procedures, referring, communicating with other health health care / medical job titles, indepentently interpreting results, counseling the patient and care coordination
[2023-10-09] MEDS: Lactated Ringers 1,000 ML 500 ML IV (19:01)
[2023-10-10] VITALS (9 sets, daily range): BP systolic 68–148; BP diastolic 41–83; PULSE 73–94; RESP 14–18; TEMP 36.3–37.3; O2SAT 94–97
[2023-10-10 00:19] LABS: Bilirubin Negative (Negative); Blood Negative (Negative); Clarity Clear (Clear); Glucose Negative (Negative); Ketones Negative (Negative); Leukocyte Esterase Negative (Negative); Nitrite Negative (Negative); Specific Gravity 1.015 (1.005-1.025); Urobilinogen 0.2 mg/dL (Up to 0.2)
[2023-10-10] MEDS: Levothyroxine 50 MCG TAB PO (06:32)
[2023-10-10] MEDS: Pantoprazole 40 MG TABCR PO (07:35)
[2023-10-10 08:08] LABS: Abs Immature Grans 0.02 10^3/uL (0.0-0.06); Absolute Basophil Count 0.02 10^3/uL (0.0-0.2); Absolute Lymphocyte Count 1.55 10^3/uL (1.2-3.4); Absolute Monocyte Count 0.44 10^3/uL (0.1-0.8); Absolute Neutrophil Count 2.93 10^3/uL (1.2-6.7); Basophils % 0.4 %; HCT 37.9 % (36.0-46.0); HGB 12.3 g/dL (11.2-15.7); Immature Grans % 0.4 %; Lymphocytes % 30.6 %; MCH 30.4 pg (27.0-33.0); MCHC 32.5 % (32.0-36.0); MCV 94 fL (80-95); Monocytes % 8.7 %; Neutrophils % 57.9 %; Platelet Count 194 10^3/uL (130-400); RBC 4.05 10^6/uL (3.93-5.22); RDW 13.2 % (11.7-14.6); RDW-SD 45.4 fL; WBC 5.06 10^3/uL (4.4-10.8)
--- NOTE | 2023-10-10 08:16 | PDOC.CMIN ---
Date of service: 10/10/23 Time of Service: 08:16 Care Management Initial Assmt Initial Assessment Reason for Hospitalization: lightheadedness Functional Status/Living Situation Patient Presentation: Demetrice was sitting up in bed when CM met with her. She was agreeable to conversation and engaged well with CM. Demetrice shared that she has been having issues with lightheadedness for months, associated with her hypotension. She stated that she came to the hospital because it got a lot worse. Demetrice is from [place] and is in [place] for an extended visit with friends and family. She was scheduled to go the [place] to see her best friend tomorrow, but will likely need to postpone the trip. She remains orthostatic and at time her SBP is in the 70s. Demetrice's medications are being adjusted at this time. Town of Residence: [place], [place] Resides with: Alone Significant Other/Family: Out of area (many friends and relatives in [place] as well as good friends in [place]) Natural Supports: Demetrice has 4 sons. 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.) Instrumental Activities of Daily Living (ADLs): Independent Medications Medication Management: No Issues/Barriers identified Physical Functioning/Mobility Assistive Device: none Advance Directives Advance Directives: Do you have an Advance Directive: N 02/01/13 16:06 AD On File at [facility]: N 10/21/12 11:04 Date Asked 10/09/23 10/09/23 12:21 AD Date Reviewed 10/06/23 10/06/23 12:30 COLST On File at [facility] COLST Date Scanned Code Status Resuscitation Status Full Code Portal Pt does not currently have a portal and education provided: No Insurance Coverage/Financial Issues Insurance: [employer] ACO Member: No Care Team Visit Care Team Role Provider Type Local No Primary Care Provider NON-[facility] STAFF PHYSICIAN Jermaine Campos MD Emergency Provider [facility] STAFF PHYSICIAN Calvin Aguirre MD Admit Provider [facility] STAFF PHYSICIAN Attending Provider Discharge Potential Discharge Needs: PCP F/U Appt Anticipated Barriers to Discharge: Medical Status Patient/Family Education Needs: Review discharge instructions, discuss Ask Me Three Transportation: Private vehicle Plan: Anticipate Demetrice will be discharged to her friend's/family's home when medically cleared. She will follow up with her community providers and plan of care and transport with family. CM will continue to support discharge needs. PFSH All Active Problems (Updated 10/09/23 @ 18:57 by Annette Bauman NP) Hypothyroid (Chronic) Pre-syncope (Acute) Dizziness of unknown cause (Acute) Social History Smoking/Tobacco Use Status: Never Smoking risk assessment performed?: Yes Alcohol Intake: current Alcohol Intake frequency: holidays/special occasions only Drug use: Never Substance use type: does not use Housing: house SDOH(Care Management) Screening Will the Patient Participate in the Screening?: Yes Do you worry about having a steady place to live?: no Problems where you live: no known problems In the past 12 months, have you had to go without electric, gas, oil or water in your home?: no Have you or anyone in your house had to go without enough food to eat?: no Has lack of transportation kept you from medical appointments or from doing things needed for daily living?: no Has anyone in your support network made you feel unsafe for any reason?: no
[2023-10-10 08:26] LABS: ALT 21 U/L (14-59); AST 16 U/L (15-37); Albumin 3.6 g/dL (3.4-5.0); Alkaline Phosphatase 78 U/L (46-116); Anion Gap 6.9 mmol/L (3-11); BUN 17 mg/dL (7-18); Bilirubin, Total 0.5 mg/dL (0.2-1.0); CO2 31.1 mmol/L (21.0-32.0); CREATININE 0.9 mg/dL (0.55-1.02); Calcium 9.1 mg/dL (8.5-10.1); Chloride 103 mmol/L (98-107); Estimated GFR 64.63 (mL/min/1.73m2); Glucose 89 mg/dL (74-106); Magnesium 2.1 mg/dL (1.8-2.4); Potassium 3.8 mmol/L (3.5-5.1); Sodium 141 mmol/L (136-145); Total Protein 6.7 g/dL (6.4-8.2)
[2023-10-10] MEDS: Atorvastatin 40 MG TAB PO (09:56)
[2023-10-10] MEDS: Aspirin E.C. 81 MG TABEC PO (09:56)
[2023-10-10] MEDS: Clopidogrel 75 MG TAB PO (09:56)
[2023-10-10] MEDS: Polyethylene Glycol 3350 17 GM PACKET PO (10:01)
[2023-10-10] MEDS: Fludrocortisone 0.1 MG TAB PO (11:56)
[2023-10-10] MEDS: Midodrine 2.5 MG TAB 5 MG PO (13:56)
--- NOTE | 2023-10-10 15:14 | CHAPLAIN ---
Demetrice was sitting up in bed when I visited. She is originally from here but lives in [place] now. She's visiting here to attend her older sister's graveside service. Demetrice said she's been feeling lightheaded for a while. She was waiting to have an echocardiogram and hoping that will provide some information about why she's light headed. She feels it's had to do with her heart. Demetrice was suppose to go to [place] tomorrow to visit a friend. When she moved away from the [facility], she and her lived in [place] for 21 years and still have close friends there. They moved to [place] after that to be closer to their son for a few years, and then to [place]. Demetrice's about a year after they moved to [place]. She said family members have encouraged her to move back home again, but for now she would like to stay in [place].
--- NOTE | 2023-10-10 15:39 | NUR.NOTE ---
Pt continues to ask to walk to the bathroom, but is unable to stand to pivot to the commode. Discussed putting safety first, Tyson Herrera applied earlier. Pt has not been able to urinate yet. Assisted to the commode again and she urinated 300ml clear yellow urine. Nursing Note:
--- NOTE | 2023-10-10 17:03 | W.PM.PROGNOT ---
Date of Service Date of service: 10/10/23 Time of Service: 17:03 Assessment and Plan Assessment and plan (1) Pre-syncope: Status: Acute Assessment and plan: Lightheadedness No syncope [employer] VS Echo - LV normal in size and wall thickness, moderately reduced global systolic function, right ventricle is normal in size and systolic function, no hemodynamiclaly significant valve disease, IVC is non-dilated and nonplethoric DC fludrocortisone (2) Dizziness of unknown cause: Status: Acute Assessment and plan: as above Orthostatic vital signs Flat 148/62, sitting 94/64 standing 74/55 and symptomatic. Fluid bolus and midodrine restarted. (3) Hypothyroid: Status: Chronic Assessment and plan: TSH 1.63 Continue home dose of levothyroxine Subjective Subjective Patient reports: no new complaints, feels better, tolerating a regular diet, bowel movement and afebrile; denies diarrhea, nausea or vomiting Objective Last Vital Signs Temp 37.3 C 10/10/23 10:56 Pulse 91 H 10/10/23 14:59 Resp 17 10/10/23 10:56 BP 101/75 10/10/23 14:59 Pulse Ox 94 10/10/23 10:56 Laboratory Results - last 24 hr 10/09/23 10/10/23 18:52 06:20 WBC 5.06 RBC 4.05 Hgb 12.3 Hct 37.9 MCV 94 MCH 30.4 MCHC 32.5 RDW 13.2 Plt Count 194 MPV 10.0 Immature Gran % 0.4 Neutrophils % 57.9 Lymphocytes % 30.6 Monocytes % 8.7 Eosinophils % 2.0 Basophils % 0.4 Nucleated RBC % 0.0 Absolute Neutrophils 2.93 Absolute Lymphocytes 1.55 Absolute Monocytes 0.44 Absolute Eosinophils 0.10 Absolute Basophils 0.02 Sodium 141 Potassium 3.8 Chloride 103 Carbon Dioxide 31.1 Anion Gap 6.9 BUN 17 Creatinine 0.9 Est GFR (CKD-EPI 2020) 64.63 Glucose 89 Calcium 9.1 Magnesium 2.1 Total Bilirubin 0.5 AST 16 ALT 21 Alkaline Phosphatase 78 Total Protein 6.7 Albumin 3.6 Urine Color Yellow Urine Clarity Clear Urine pH 7.0 Ur Specific [place] 1.015 Urine Protein Negative Urine Ketones Negative Urine Blood Negative Urine Nitrite Negative Urine Bilirubin Negative Urine Urobilinogen 0.2 Ur Leukocyte Esterase Negative Urine Glucose Negative Time Spent with Patient Time Spent with Patient: 35-49 minutes Time was spent: preparing to see the patient(eg.review tests), ordering medications,tests, procedures, referring, communicating with other health career resource specialist, indepentently interpreting results, counseling the patient and care coordination
--- NOTE | 2023-10-10 17:41 | NUR.NOTE ---
Pt has been successfully transferring with 1 assist, no longer c/o dizziness, even with low BP. Nursing Note:
[2023-10-10] MEDS: Enoxaparin 40 MG/0.4 ML SYR SC (17:54)
[2023-10-11] VITALS (12 sets, daily range): BP systolic 70–171; BP diastolic 50–89; PULSE 69–88; RESP 18; TEMP 36.3–37.3; O2SAT 94–97
[2023-10-11] MEDS: Levothyroxine 50 MCG TAB PO (05:42)
[2023-10-11 06:36] LABS: Abs Immature Grans 0.02 10^3/uL (0.0-0.06); Absolute Basophil Count 0.05 10^3/uL (0.0-0.2); Absolute Eosinophil Count 0.11 10^3/uL (0.0-0.7); Absolute Lymphocyte Count 1.75 10^3/uL (1.2-3.4); Absolute Monocyte Count 0.52 10^3/uL (0.1-0.8); Eosinophils % 2.1 %; HCT 37.1 % (36.0-46.0); Immature Grans % 0.4 %; MCH 30.3 pg (27.0-33.0); MCHC 32.3 % (32.0-36.0); MCV 94 fL (80-95); MPV 9.8 fL (8.0-11.0); Monocytes % 10.1 %; Neutrophils % 52.4 %; Platelet Count 204 10^3/uL (130-400); RBC 3.96 10^6/uL (3.93-5.22); RDW 13.1 % (11.7-14.6); WBC 5.15 10^3/uL (4.4-10.8)
[2023-10-11 07:05] LABS: ALT 24 U/L (14-59); AST 18 U/L (15-37); Albumin 3.6 g/dL (3.4-5.0); Alkaline Phosphatase 80 U/L (46-116); Anion Gap 7.1 mmol/L (3-11); BUN 20 mg/dL (7-18); Bilirubin, Total 0.5 mg/dL (0.2-1.0); CO2 30.9 mmol/L (21.0-32.0); CREATININE 0.9 mg/dL (0.55-1.02); Chloride 100 mmol/L (98-107); Estimated GFR 64.63 (mL/min/1.73m2); Glucose 94 mg/dL (74-106); Magnesium 2.1 mg/dL (1.8-2.4); Potassium 4.2 mmol/L (3.5-5.1); Sodium 138 mmol/L (136-145); Total Protein 6.8 g/dL (6.4-8.2)
[2023-10-11] MEDS: Aspirin E.C. 81 MG TABEC PO (07:38)
[2023-10-11] MEDS: Pantoprazole 40 MG TABCR PO (07:38)
[2023-10-11] MEDS: Atorvastatin 40 MG TAB PO (07:39)
[2023-10-11] MEDS: Clopidogrel 75 MG TAB PO (07:39)
[2023-10-11] MEDS: Normal Saline Flush 10 ML SYR IVP (07:40)
[2023-10-11] MEDS: Midodrine 2.5 MG TAB 5 MG PO (07:40)
[2023-10-11] MEDS: Midodrine 2.5 MG TAB 10 MG PO ×2 (13:55→18:40)
--- NOTE | 2023-10-11 16:06 | PGE_ITS ---
Date of Service Date of service: 10/11/23 Time of Service: 16:06 Assessment and Plan Assessment and plan (1) Pre-syncope: Status: Acute Assessment and plan: Lightheadedness No syncope Micromatic Hone Operator VS Echo - LV normal in size and wall thickness, moderately reduced global systolic function, right ventricle is normal in size and systolic function, no hemodynamiclaly significant valve disease, IVC is non-dilated and nonplethoric restart fludrocortisone s/t continued orthostatic hypotension and lightheadedness Double midodrine (2) Dizziness of unknown cause: Status: Acute Assessment and plan: as above Orthostatic vital signs (3) Hypothyroid: Status: Chronic Assessment and plan: TSH 1.63 Continue home dose of levothyroxine Subjective Subjective Patient reports: no new complaints, feels better, tolerating a regular diet, voiding w/o difficulty, bowel movement and afebrile; denies flatus, diarrhea, nausea or vomiting Interval history since last seen: [place] states she is feeling better, however still dizzy when standing, she states she recovers quckly when she sits down. Exam Narrative Exam Narrative: Nurses notes and vital signs reviewed. Const General: cooperative, healthy appearing, comfortable, no acute distress and well developed Orientation: oriented x3 HENMT Head: normal to inspection Ears: hearing grossly normal bilaterally, external ears normal and TM's normal bilaterally General nose exam: external nose normal and nares normal Face and sinus: normal facial exam Mouth: oral mucosae normal, lip normal and tongue normal Teeth and gingiva: dentition normal Throat: posterior oropharynx normal Eyes General: appearance normal, both eyes and all related structures Alignment and Position: alignment normal Eyelids: eyelids normal Conjunctivae: conjunctivae normal Sclera: sclerae normal Cornea: corneas normal Pupils: PERRL EOM: EOM intact bilaterally Direct ophthalmoscopy: normal light reflex Neck Neck: normal visual inspection, full ROM and no lymphadenopathy Thyroid: thyroid normal Carotids: normal carotid upstroke Lymphatic: no lymphadenopathy noted Chest Chest: normal inspection of the chest Resp Effort & Inspection: normal respiratory effort and able to speak in complete sentences Auscultation: clear to auscultation bilaterally Cardio Jugular venous pressure: no JVD Rate: regular rate Rhythm: regular rhythm Heart Sounds: S1 normal and S2 normal GI Inspection: normal to inspection Palpation: soft and no hepatosplenomegaly Skin General skin exam: no rashes or lesions noted Neuro General: patient oriented x3 Cranial Nerves: CN's II-XI intact bilaterally Cognition: normal cognition Speech: speech normal Motor: muscle tone normal throughout Psych Appearance: grossly normal Mental Status: mental status grossly normal Speech and Movement: speech and movement normal Mood: congruent mood Affect: normal affect Attitude: cooperative and avoids eye contact Thought Process: normal Thought Content: normal Insight: insight good Judgment: judgment good Objective Last Vital Signs Temp 37.3 C 10/11/23 15:41 Pulse 85 10/11/23 15:55 Resp 18 10/11/23 15:41 BP 78/50 L 10/11/23 15:55 Pulse Ox 97 10/11/23 15:41 Laboratory Results - last 24 hr 10/11/23 06:00 WBC 5.15 RBC 3.96 Hgb 12.0 Hct 37.1 MCV 94 MCH 30.3 MCHC 32.3 RDW 13.1 Plt Count 204 MPV 9.8 Immature Gran % 0.4 Neutrophils % 52.4 Lymphocytes % 34.0 Monocytes % 10.1 Eosinophils % 2.1 Basophils % 1.0 Nucleated RBC % 0.0 Absolute Neutrophils 2.70 Absolute Lymphocytes 1.75 Absolute Monocytes 0.52 Absolute Eosinophils 0.11 Absolute Basophils 0.05 Sodium 138 Potassium 4.2 Chloride 100 Carbon Dioxide 30.9 Anion Gap 7.1 BUN 20 H Creatinine 0.9 Est GFR (CKD-EPI 2020) 64.63 Glucose 94 Calcium 9.0 Magnesium 2.1 Total Bilirubin 0.5 AST 18 ALT 24 Alkaline Phosphatase 80 Total Protein 6.8 Albumin 3.6 Time Spent with Patient Time Spent with Patient: 25-34 minutes Time was spent: preparing to see the patient(eg.review tests), ordering medications,tests, procedures, referring, communicating with other health manager medicare marketing, indepentently interpreting results, counseling the patient and care coordination
[2023-10-11] MEDS: Fludrocortisone 0.1 MG TAB PO (16:47)
[2023-10-11] MEDS: Enoxaparin 40 MG/0.4 ML SYR SC (18:39)
[2023-10-12] VITALS (7 sets, daily range): BP systolic 62–154; BP diastolic 50–96; PULSE 70–98; RESP 16–18; TEMP 36.5–37.2; O2SAT 94–98
[2023-10-12] MEDS: Levothyroxine 50 MCG TAB PO (05:40)
[2023-10-12 07:01] LABS: Abs Immature Grans 0.01 10^3/uL (0.0-0.06); Absolute Basophil Count 0.04 10^3/uL (0.0-0.2); Absolute Eosinophil Count 0.14 10^3/uL (0.0-0.7); Absolute Monocyte Count 0.48 10^3/uL (0.1-0.8); Basophils % 0.8 %; Eosinophils % 2.8 %; HCT 38.6 % (36.0-46.0); HGB 12.4 g/dL (11.2-15.7); Immature Grans % 0.2 %; Lymphocytes % 32.2 %; MCH 30.3 pg (27.0-33.0); MCHC 32.1 % (32.0-36.0); MCV 94 fL (80-95); MPV 9.6 fL (8.0-11.0); Monocytes % 9.7 %; Neutrophils % 54.3 %; Platelet Count 200 10^3/uL (130-400); RBC 4.09 10^6/uL (3.93-5.22); RDW 13.1 % (11.7-14.6); RDW-SD 44.9 fL; WBC 4.97 10^3/uL (4.4-10.8)
[2023-10-12 07:30] LABS: ALT 24 U/L (14-59); AST 19 U/L (15-37); Albumin 3.5 g/dL (3.4-5.0); Alkaline Phosphatase 92 U/L (46-116); Anion Gap 6.2 mmol/L (3-11); BUN 23 mg/dL (7-18); Bilirubin, Total 0.4 mg/dL (0.2-1.0); CO2 30.8 mmol/L (21.0-32.0); CREATININE 0.9 mg/dL (0.55-1.02); Calcium 9.3 mg/dL (8.5-10.1); Chloride 102 mmol/L (98-107); Estimated GFR 64.63 (mL/min/1.73m2); Glucose 102 mg/dL (74-106); Magnesium 2.1 mg/dL (1.8-2.4); Potassium 4.1 mmol/L (3.5-5.1); Sodium 139 mmol/L (136-145); Total Protein 6.8 g/dL (6.4-8.2)
[2023-10-12] MEDS: Midodrine 2.5 MG TAB 10 MG PO ×3 (07:39→17:40)
[2023-10-12] MEDS: Normal Saline Flush 10 ML SYR IVP (07:39)
[2023-10-12] MEDS: Atorvastatin 40 MG TAB PO (07:40)
[2023-10-12] MEDS: Aspirin E.C. 81 MG TABEC PO (07:41)
[2023-10-12] MEDS: Pantoprazole 40 MG TABCR PO (07:41)
[2023-10-12] MEDS: Clopidogrel 75 MG TAB PO (07:41)
[2023-10-12] MEDS: Fludrocortisone 0.1 MG TAB PO (07:42)
--- NOTE | 2023-10-12 16:03 | W.PM.PROGNOT ---
Date of Service Date of service: 10/12/23 Time of Service: 16:03 Assessment and Plan Assessment and plan (1) Pre-syncope: Status: Acute Assessment and plan: Lightheadedness No syncope Telemetry - normal sinus rhytm 64-90 first degree, left bundle branch block. Monitor VS Echo - LV normal in size and wall thickness, moderately reduced global systolic function, right ventricle is normal in size and systolic function, no hemodynamiclaly significant valve disease, IVC is non-dilated and nonplethoric patient refuses fludrocortisonemakes her feel tingly and not well Continue double midodrine Cardiology consult pending continues to have very low BP when standing 60-80s (2) Dizziness of unknown cause: Status: Acute Assessment and plan: as above Orthostatic vital signs (3) Hypothyroid: Status: Chronic Assessment and plan: TSH 1.63 Continue home dose of levothyroxine Subjective Subjective Patient reports: no new complaints, tolerating a regular diet, voiding w/o difficulty, bowel movement and afebrile; denies flatus, diarrhea, nausea, vomiting or shortness of breath Interval history since last seen: Awake, alert sitting in bed. States she is feeling better but does not want to take the fludrocortisone, she states that it makes her tingly and not feel well/ She continues to feel weak and light headed Exam Narrative Exam Narrative: Nurses notes and vital signs reviewed. Const General: cooperative, healthy appearing, comfortable, no acute distress and well developed Orientation: oriented x3 HENMT Head: normal to inspection Ears: hearing grossly normal bilaterally, external ears normal and TM's normal bilaterally General nose exam: external nose normal and nares normal Face and sinus: normal facial exam Mouth: oral mucosae normal, lip normal and tongue normal Teeth and gingiva: dentition normal Throat: posterior oropharynx normal Eyes General: appearance normal, both eyes and all related structures Alignment and Position: alignment normal Eyelids: eyelids normal Conjunctivae: conjunctivae normal Sclera: sclerae normal Cornea: corneas normal Pupils: PERRL EOM: EOM intact bilaterally Direct ophthalmoscopy: normal light reflex Neck Neck: normal visual inspection, full ROM and no lymphadenopathy Thyroid: thyroid normal Carotids: normal carotid upstroke Lymphatic: no lymphadenopathy noted Chest Chest: normal inspection of the chest Resp Effort & Inspection: normal respiratory effort and able to speak in complete sentences Auscultation: clear to auscultation bilaterally Cardio Jugular venous pressure: no JVD Rate: regular rate Rhythm: regular rhythm Heart Sounds: S1 normal and S2 normal GI Inspection: normal to inspection Palpation: soft and no hepatosplenomegaly Skin General skin exam: no rashes or lesions noted Neuro General: patient oriented x3 Cranial Nerves: CN's II-XI intact bilaterally Cognition: normal cognition Speech: speech normal Motor: muscle tone normal throughout Psych Appearance: grossly normal Mental Status: mental status grossly normal Speech and Movement: speech and movement normal Mood: congruent mood Affect: normal affect Attitude: cooperative and avoids eye contact Thought Process: normal Thought Content: normal Insight: insight good Judgment: judgment good Objective Last Vital Signs Temp 36.7 C 10/12/23 15:21 Pulse 73 10/12/23 15:21 Resp 17 10/12/23 15:21 BP 123/78 10/12/23 15:21 Pulse Ox 98 10/12/23 15:21 Laboratory Results - last 24 hr 10/12/23 10/12/23 06:05 06:55 WBC 4.97 RBC 4.09 Hgb 12.4 Hct 38.6 MCV 94 MCH 30.3 MCHC 32.1 RDW 13.1 Plt Count 200 MPV 9.6 Immature Gran % 0.2 Neutrophils % 54.3 Lymphocytes % 32.2 Monocytes % 9.7 Eosinophils % 2.8 Basophils % 0.8 Nucleated RBC % 0.0 Absolute Neutrophils 2.70 Absolute Lymphocytes 1.60 Absolute Monocytes 0.48 Absolute Eosinophils 0.14 Absolute Basophils 0.04 Sodium 139 Potassium 4.1 Chloride 102 Carbon Dioxide 30.8 Anion Gap 6.2 BUN 23 H Creatinine 0.9 Est GFR (CKD-EPI 2020) 64.63 Glucose 102 Calcium 9.3 Magnesium 2.1 Total Bilirubin 0.4 AST 19 ALT 24 Alkaline Phosphatase 92 Total Protein 6.8 Albumin 3.5 Time Spent with Patient Time Spent with Patient: 35-49 minutes Time was spent: preparing to see the patient(eg.review tests), ordering medications,tests, procedures, referring, communicating with other health date night caregiver, indepentently interpreting results, counseling the patient and care coordination
[2023-10-12] MEDS: Enoxaparin 40 MG/0.4 ML SYR SC (17:39)
[2023-10-13] VITALS (7 sets, daily range): BP systolic 71–174; BP diastolic 46–121; PULSE 66–81; RESP 17; TEMP 36.8–36.9; O2SAT 95–99
[2023-10-13] MEDS: Levothyroxine 50 MCG TAB PO (06:33)
[2023-10-13 06:37] LABS: Abs Immature Grans 0.02 10^3/uL (0.0-0.06); Absolute Basophil Count 0.04 10^3/uL (0.0-0.2); Absolute Eosinophil Count 0.16 10^3/uL (0.0-0.7); Absolute Lymphocyte Count 1.66 10^3/uL (1.2-3.4); Absolute Monocyte Count 0.52 10^3/uL (0.1-0.8); Absolute Neutrophil Count 2.87 10^3/uL (1.2-6.7); Basophils % 0.8 %; HCT 40.2 % (36.0-46.0); Immature Grans % 0.4 %; Lymphocytes % 31.5 %; MCH 30.2 pg (27.0-33.0); MCHC 32.3 % (32.0-36.0); MCV 93 fL (80-95); MPV 9.8 fL (8.0-11.0); Monocytes % 9.9 %; Neutrophils % 54.4 %; Platelet Count 213 10^3/uL (130-400); RBC 4.31 10^6/uL (3.93-5.22); RDW 13.2 % (11.7-14.6); RDW-SD 45.3 fL; WBC 5.27 10^3/uL (4.4-10.8)
[2023-10-13 06:51] LABS: BUN 24 mg/dL (7-18); CREATININE 0.9 mg/dL (0.55-1.02); Calcium 9.5 mg/dL (8.5-10.1); Chloride 103 mmol/L (98-107); Estimated GFR 64.63 (mL/min/1.73m2); Glucose 92 mg/dL (74-106); Magnesium 2.2 mg/dL (1.8-2.4); Potassium 4.2 mmol/L (3.5-5.1); Sodium 141 mmol/L (136-145)
[2023-10-13] MEDS: Normal Saline Flush 10 ML SYR IVP (07:51)
[2023-10-13] MEDS: Clopidogrel 75 MG TAB PO (07:52)
[2023-10-13] MEDS: Midodrine 2.5 MG TAB 10 MG PO ×2 (07:52→14:10)
[2023-10-13] MEDS: Pantoprazole 40 MG TABCR PO (07:52)
[2023-10-13] MEDS: Atorvastatin 40 MG TAB PO (07:52)
[2023-10-13] MEDS: Aspirin E.C. 81 MG TABEC PO (07:52)
--- NOTE | 2023-10-13 09:02 | PGE_ITS ---
Date of Service Date of service: 10/13/23 Time of Service: 09:00 Assessment and Plan Assessment and plan (1) Pre-syncope: Status: Acute Assessment and plan: Lightheadedness No syncope, no further symptoms of near syncope but feels weak- PT consult Monitor VS and orthos PRN Echo - LVEF 38%; LV of normal in size and wall thickness, moderately reduced global systolic function, right ventricle is normal in size and systolic function, no hemodynamiclaly significant valve disease, IVC is non-dilated and nonplethoric; IVC collapsing > 50% w inspiration patient refused fludrocortisone makes her feel tingly and not well w numbness to finger and jittery Had the same symptoms on Thursday 10/05 and had visited the Ed and refused to stay fro MRI for stroke VS TIA In current stay MRI was completed and negative Will retry fludrocortisone Continue higher midodrine dosing Cardiology consult completed see notes Transient improvement of orthostatics s/p fluid bolus,no CV distress; will repeat (2) Dizziness of unknown cause: Status: Acute Assessment and plan: as above Orthostatic vital signs As per cardiology consult: Prior evaluation in [place] and recommendations of her providers there were discussed. - midodrine, Florinef, liberal salt intake, adequate hydration and care with changing position. There are no additional therapies. (3) Hypothyroid: Status: Chronic Assessment and plan: TSH 1.63 On home dose of levothyroxine (4) HFrEF (heart failure with reduced ejection fraction): Status: Acute Assessment and plan: LVEF 38% with moderate LV hypokinesis Not on GDMT Cardiology consult as patient came in near syncope considering to start on lisinorpil, entresto or beta-deepa as per cardiology consultation discussion with Dr. Cruz, GDMT is not indicated at this time. Patient is to retun home with discharge summary and have her PCP f/u on new diagnosis and guidelines. Discussed with Dr. garcia (5) Orthostatic hypotension: Status: Acute Assessment and plan: Iatrogenic vs medication induced Echo showed collapsable IVC> 50 % with inspiration but d/t the LVEF of 38% will cautiously adminiter small volume of NS 250 cc and reevaluate s/p IV volume vital signs were orthostasis negative cardio consult in progress DVT prophylaxis on lovenox SC Discussed with Dr. Garcia Subjective Subjective Patient reports: no new complaints, feels better, tolerating liquids well, tolerating a regular diet, voiding w/o difficulty and bowel movement; denies diarrhea, nausea, vomiting, shortness of breath or fever Exam Narrative Exam Narrative: Constitutional The patient in bed comfortable without acute distress Neuro:alert and oriented to self, person, place, time and situation. No neurological focal deficit Resp: unlabored breathing, clear lung bilaterally Cardio: regular rhythm, S1, S2, no murmur, bilateral radial and dorsalis pedis pulses are positive, no edema GI: Abdomen is not distended, soft and non tender, bowel sounds are present Back/spine/Pelvis: No back tenderness, normal alignment Integumentary: No skin lesions or rash Extremities: strength 5/5 to bilateral lower and upper extremities Psych: RASS 0, congruent mood and normal affect. Objective Last Vital Signs Temp 36.9 C 10/13/23 07:39 Pulse 71 10/13/23 07:39 Resp 17 10/13/23 07:39 BP 127/78 10/13/23 07:39 Pulse Ox 95 10/13/23 07:39 Laboratory Results - last 24 hr 10/13/23 06:10 WBC 5.27 RBC 4.31 Hgb 13.0 Hct 40.2 MCV 93 MCH 30.2 MCHC 32.3 RDW 13.2 Plt Count 213 MPV 9.8 Immature Gran % 0.4 Neutrophils % 54.4 Lymphocytes % 31.5 Monocytes % 9.9 Eosinophils % 3.0 Basophils % 0.8 Nucleated RBC % 0.0 Absolute Neutrophils 2.87 Absolute Lymphocytes 1.66 Absolute Monocytes 0.52 Absolute Eosinophils 0.16 Absolute Basophils 0.04 Sodium 141 Potassium 4.2 Chloride 103 Carbon Dioxide 30.0 Anion Gap 8.0 BUN 24 H Creatinine 0.9 Est GFR (CKD-EPI 2020) 64.63 Glucose 92 Calcium 9.5 Magnesium 2.2 Time Spent with Patient Time Spent with Patient: >50 minutes Time was spent: preparing to see the patient(eg.review tests), obtaining and/or reviewing separately otained hiistory, ordering medications,tests, procedures, referring, communicating with other health ocular care technician, indepentently interpreting results, counseling the patient and care coordination
[2023-10-13] MEDS: Normal Saline 1,000 ML 125 ML IV (09:31)
--- NOTE | 2023-10-13 09:53 | PDOC.CMPRO ---
Date of service: 10/13/23 Time of Service: 09:53 Care Management Progress Note Discharge Potential Discharge Needs: PCP F/U Appt Anticipated Barriers to Discharge: Medical Status Patient/Family Education Needs: Review discharge instructions, discuss Ask Me Three Transportation: Private vehicle Plan: Anticipate Demetrice will be discharged to her friend's/family's home when medically cleared. She will follow up with her community providers and plan of care and transport with family. CM will continue to support discharge needs. SDOH(Care Management) Screening Will the Patient Participate in the Screening?: Yes Do you worry about having a steady place to live?: no Problems where you live: no known problems In the past 12 months, have you had to go without electric, gas, oil or water in your home?: no Have you or anyone in your house had to go without enough food to eat?: no Has lack of transportation kept you from medical appointments or from doing things needed for daily living?: no Has anyone in your support network made you feel unsafe for any reason?: no
--- NOTE | 2023-10-13 11:26 | PHA.REVIEW2 ---
Pharmacy Admission Review Admission Clinical Review Admission Pharmacy Review: Pre-syncope (Acute) Dizziness of unknown cause (Acute) No Known Allergies Allergy (Unverified 10/09/23 12:24) Resuscitation Status Full Code Height 5 ft 3 in Weight 80.4 kg Comments Comments/Follow Ups: Watch VS, labs and for med changes (possible renal dose adjustments) Pharmacy Admission Review Renal Dosing Renal Dosing: BUN 24 mg/dL (7-18) H 10/13/23 06:10 Creatinine 0.9 mg/dL (0.55-1.02) 10/13/23 06:10 Medications needing adjustments: Reviewed (Crcl ~45 mL/min current meds okay) Anticoagulation Anticoagulation: Hgb 13.0 g/dL (11.2-15.7) 10/13/23 06:10 Hct 40.2 % (36.0-46.0) 10/13/23 06:10 Plt Count 213 10^3/uL (130-400) 10/13/23 06:10 Creatinine 0.9 mg/dL (0.55-1.02) 10/13/23 06:10 DVT Prophylaxis: Reviewed Medications: Enoxaparin Opiate Usage Evaluate Pain Scale/Pains Meds: N/A Relevant Labs Relevant Labs: Sodium 141 mmol/L (136-145) 10/13/23 06:10 Potassium 4.2 mmol/L (3.5-5.1) 10/13/23 06:10 Chloride 103 mmol/L (98-107) 10/13/23 06:10 Magnesium 2.2 mg/dL (1.8-2.4) 10/13/23 06:10 Electrolytes, C-Reactive P, ESR: Reviewed DM Control DM Control: N/A Cardiac Review Cardiac Review: Troponin I < 50 ng/L (< or =60) 10/09/23 12:40 NT-Pro-B Natriuret Pep 1522 pg/mL (<300) H 10/09/23 12:40 BP, HR, EF%: Reviewed QTc Review QTc: Reviewed (QTc 443 on admission) IV to PO Switch IV Medications: Reviewed Home Meds Relevent Home Meds Not ordered & why?: vitamin c complex, cholecalciferol, cyanocobalamin, fludrocortisone (was ordered then d/c'd as pt was refusing it), mag glycinate Current Meds Current Medication Order Review: Reviewed Comments Comments/Follow Ups: Watch VS, labs and for med changes (possible renal dose adjustments)
--- NOTE | 2023-10-13 12:17 | W.CARDCONSUL ---
Date of service: 10/13/23 Time of Service: 12:17 Assessment and Plan Assessment and plan (1) Orthostatic hypotension: Status: Acute Assessment and plan: Patient has chronic orthostatic hypotension. I reviewed with her that this is a very difficult problem to treat. Her prior evaluation in [place] and recommendations of her providers there were discussed. Basically she is left with midodrine, Florinef, liberal salt intake, adequate hydration and care with changing position. There are no additional therapies. History of Present Illness History of Present Illness Chief Complaint: Orthostatic hypotension Narrative: This is an 78-year-old woman who has a diagnosis of orthostatic hypotension for which she has been undergoing treatment and evaluation for several years. She usually resides in [place], but is currently visiting in [place]. She has well-documented orthostatic hypotension for which she has been on midodrine. Back in April she was prescribed Florinef, but felt that this disagreed with her. In addition to cardiology, she saw a neurologist in [place] as well. Her providers there recommended liberal salt intake, 2 L of fluids a day and a lot of walking. Florinef has been recommended here, but the patient declined She has no symptoms when seated. She gets lightheaded when she stands. This is not new EKGs have shown left axis and LBBB PFSH All Active Problems (Updated 10/13/23 @ 12:21 by Tea Cruz MD) Orthostatic hypotension (Acute) Hypothyroid (Chronic) Pre-syncope (Acute) Dizziness of unknown cause (Acute) Social History Smoking/Tobacco Use Status: Never Smoking risk assessment performed?: Yes Alcohol Intake: current Alcohol Intake frequency: holidays/special occasions only Drug use: Never Substance use type: does not use Housing: house Exam Const Other: Well-developed well-nourished looks younger than stated age no acute distress Results Last Vital Signs Temp 36.9 C 10/13/23 07:39 Pulse 78 10/13/23 11:44 Resp 17 10/13/23 07:39 BP 142/121 H 10/13/23 11:44 Pulse Ox 95 10/13/23 07:39 Labs 10/13/23 06:10 10/13/23 06:10 Labs: Laboratory Results - last 24 hr 10/13/23 06:10 WBC 5.27 RBC 4.31 Hgb 13.0 Hct 40.2 MCV 93 MCH 30.2 MCHC 32.3 RDW 13.2 Plt Count 213 MPV 9.8 Immature Gran % 0.4 Neutrophils % 54.4 Lymphocytes % 31.5 Monocytes % 9.9 Eosinophils % 3.0 Basophils % 0.8 Nucleated RBC % 0.0 Absolute Neutrophils 2.87 Absolute Lymphocytes 1.66 Absolute Monocytes 0.52 Absolute Eosinophils 0.16 Absolute Basophils 0.04 Sodium 141 Potassium 4.2 Chloride 103 Carbon Dioxide 30.0 Anion Gap 8.0 BUN 24 H Creatinine 0.9 Est GFR (CKD-EPI 2020) 64.63 Glucose 92 Calcium 9.5 Magnesium 2.2
[2023-10-13] MEDS: Normal Saline 250 ML IV (14:41)
[2023-10-13] MEDS: Fludrocortisone 0.1 MG TAB PO (14:48)
--- NOTE | 2023-10-13 15:52 | PT.INIE ---
PT Notes Visit Reasons: Near syncope Physical Therapy Inpatient Initial Evaluation Date: 10/13/2023 Referring Doctor: Domitila Kelly NP PT Orders: PT CONSULT: Safety Consult for D/C Precautions: Standard. Activity as tolerated. Patient Profile/Admitting Diagnosis: Demetrice is an 78-year-old female admitted on 10/09/2023 for management of 3 syncope, dizziness of unknown cause, HTN, and hypothyroidism. PMHX: All Active Problems (Updated 10/09/23 @ 18:57 by Annette Bauman NP) Hypothyroid (Chronic) Pre-syncope (Acute) Dizziness of unknown cause (Acute) Social History/Home Situation: Lives in [place] and came in here for a short vacation. Has been staying at her [id number]'s house which has a ramp to enter. Independent in all aspects of ADLs prior to surgery. Occasionally used a single-point cane for all mobility performance. Equipment Owned/DME: [facility], SPC Subjective: Feels so much better. Did not report dizziness throughout ambulation activity. Feels confident about going home using single-point cane. Objective: General Observation: Patient with nurse Qureshi doing orthostatic blood pressure measurements. Mental Status: Alert and oriented as to person, place, time, and purpose. Able to pay attention, focus, and respond appropriately. Pain: None reported Vital Signs: BP now higher even with changes in position: see most recent orthostatic Bp measurement by Nurse Qureshi ROM: Right Upper Extremity: Shoulder Flexion WFL. Shoulder abduction WFL. Elbow flexion WFL. Wrist flexion WFL. Functional opening and closing of hand WFL. Left Upper Extremity: Shoulder Flexion WFL. Shoulder abduction WFL. Elbow flexion WFL. Wrist flexion WFL. Functional opening and closing of hand WFL. Right Lower Extremity: Hip flexion WFL. Hip abduction WFL. Knee flexion WFL. Ankle dorsiflexion WFL. Ankle plantarflexion WFL. Left Lower Extremity: Hip flexion WFL. Hip abduction WFL. Knee flexion WFL. Ankle dorsiflexion WFL. Ankle plantarflexion WFL. Strength: Right Upper Extremity: Shoulder flexors 4/5. Shoulder abductors 4/5. Elbow flexors 5/5. Elbow extensors 5/5. Supervisor Warping Department strong. Left Upper Extremity: Shoulder flexors 4/5. Shoulder abductors 4/5. Elbow flexors 5/5. Elbow extensors 5/5. Supervisor Warping Department strong. Right Lower Extremity: Hip flexors 4/5. Hip abductors 4/5. Knee flexors 5/5. Knee extensors 4/5. Ankle dorsiflexors 4/5. Ankle plantarflexors 4/5. Left Lower Extremity: Hip flexors 4/5. Hip abductors 4/5. Knee flexors 5/5. Knee extensors 4/5. Ankle dorsiflexors 4/5. Ankle plantarflexors 4/5. Bed Mobility/Transfers: Rolling independent Supine to sit independent Sit to supine independent Sit to stand supervision Stand to sit supervision with SPC Bed to toilet seat supervision with SPC Toilet seat to bed supervision with SPC Gait: Modified independent using front wheel walker covering a distance of 300 feet, supervision covering a distance of 200 feet using single-point cane with minimal verbal cueing only for directions. Stairs: Completed 3 x 4 inch steps and 2 x 6 inch steps while holding onto 1 rail with step over step gait pattern requiring only supervision assist with no report of dizziness. Balance: Static Sitting: Normal Dynamic Sitting: Normal Static Standing: Good Dynamic Standing: Fair Special Tests: Mobility Limitations Standardized Measure [facility] AM-PAC 6 clicks Basic Mobility Inpatient Short Form: Raw Score: 24 CMS Score: 0%% deficit Informed Consent/Education: Patient was instructed in purpose of PT consult and plan of care. Agreeable to proceed with established PT POC to achieve personal goals. Assessment: Patient presents with clinical signs and symptoms consistent with current/admitting diagnoses that have resulted to mobility limitations, gait instability, generalized weakness, and overall ADL decline as demonstrated by the following impairment level findings: 1. Decreased strength to B UE/LE major muscle groups Impairments are contributing to the following functional limitations: 1. Difficulty with ambulation without assistive device 2. Increased completion time for mobility ADL performance Patient is assessed as a [id number] low complexity based on the following: History: 78-year-old female with past medical history as indicated above Examination: As above Presentation: Stable Decision Makin low complexity Goals: Goals X1 week 1. Independent gait on level surface with use of SPC for at least 600 feet without report of pain nor dyspnea 2. Independent stair negotiation while holding onto 1 rail for at least 3 steps without report of pain nor dyspnea Plan of Care/Treatment Plan: 1-2x/day, 7 days/week x 1 week. Plan of care has been reviewed with the ASSISTANT GUEST SERVICES MANAGER providing the service under Physical Therapy direction. Initiate Physical Therapy intervention for pain management as needed, strengthening, bed mobility, transfers, gait, stairs, balance training, and use of assistive device. DISCHARGE RECOMMENDATIONS: [X] Home with no services. Home when medically cleared by hospitalist. [] Home with services [specify] [] Home with outpatient PT [] [] SNF for continued rehabilitation [] [] [facility] [] [] SNF versus LTC based on ability to participate and progress [] TREATMENT CODE/TIME: 27971 x 19 minutes for 1 unit (15:50-16:09). Thank you for the opportunity to participate in the care of this patient. Julia Talavera PT, DPT, CLT [facility] [place], [place]
--- NOTE | 2023-10-13 16:26 | DSE_ITS ---
Date of service: 10/13/23 Time of Service: 16:26 DS: Diagnosis Discharge Diagnosis (1) Pre-syncope: Status: Acute (2) Dizziness of unknown cause: Status: Acute (3) Hypothyroid: Status: Chronic (4) HFrEF (heart failure with reduced ejection fraction): Status: Acute (5) Orthostatic hypotension: Status: Acute Discharge Plan Disposition Patient Disposition: Home Condition: Improving Discharge Details Reason For Visit: Near syncope Admit Date/Time: 10/09/23 15:48 Admit Provider: Calvin Aguirre Attending Provider: Calvin Aguirre Primary Care Provider: Cherry,[facility] Course Hospital Course: This 78 years old female patient with a past medical history of congestive heart failure, TIA, hypertensive episode presented to the ED at [facility] on for evaluation of near syncope. Several similar instances with presentation of extreme weakness, lightheadedness, nearly leading to loss of consciousness but without actual syncope were reported and evaluated with low blood pressure suspected being the cause. Patient reported that at home she takes midodrine as needed for low blood pressures. The patient reported each episode lasting a pproximately 20 minutes. At the time the patient denied symptoms such as headache, chest pain, or shortness of breath. 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 At the time the patient declined to stay for an MRI on the following day. In the ED and MRI was completed and showed no acute territorial infarct. An EKG did not show acute ischemia with a heart rate of 68 bpm and sinus rhythm. Blood work was unremarkable except for a slight increase in proBNP to 15.2 plan in the ED the patient received furosemide 80 IV due to this finding despite no significant sign of volume overload on chest x-ray. Blood pressure remained elevated during her time in the emergency room possibly due to midodrine intake despite normotension. The hospitalist service was consulted and patient was admitted for observation with telemetry for evaluation and management of iatrogenic orthostasis, congestive heart failure and presyncopal symptoms. On arrival to the floor the patient reported that she felt like a limp dish rag status post Lasix 80 IV in the emergency room. Due to BP 93/55 lactated Ringer's 500 mL bolus was initiated. The patient had not taking her midodrine at home and during the stay the patient's regimen was resumed as scheduled. The patient received fludrocortisone and reported side effect such as left-sided lip tingling left hand?finger numbness and refused to take the medicine. Upon reviewing symptoms the patient agreed that the symptoms resemble her initial symptoms during her presentation on 10/06/2023 and agreed to take the fludrocortisone. An echocardiogram was completed with LVEF of 30%, moderate LV hypokinesis. Cardiology consult was completed for chronic orthostatic hypotension and HFrEF Dr. Cruz mentioned in her notes that the patient had been evaluated in [place] and that recommendations from her providers in [place] were discussed with recommendation for midodrine, Florinef, liberal salt intake, adequate hydration and caution in changing positions. At this time no additional therapies were indicated. The midodrine dose was increased to 10 mg 3 times a day scheduled. The patient received NS with 50 mL fluid bolus with transient improvement of orthostatics; bolus was later repeated. The patient's other chronic conditions were treated as per home medicine regimen. Recommendations given to the patient to follow-up with her primary care provider and thermometer maker in [place] as patient mention that she will shortly leave for her home in [place]. Physical therapy for safe discharge evaluation was completed and the patient can be safely discharge today on Midodrine, Florinef. Discussed with Dr. Garcia Home Meds and New Rx's Prescriptions: Continued atorvastatin 40 mg tablet 40 mg PO DAILY aspirin [Adult Low Dose Aspirin] 81 mg tablet,delayed release (DR/EC) 81 mg PO DAILY clopidogrel 75 mg tablet 75 mg PO DAILY pantoprazole [Protonix] 40 mg tablet,delayed release (DR/EC) 40 mg PO DAILY fludrocortisone 0.1 mg tablet 0.1 mg PO DAILY cyanocobalamin (vitamin B-12) 1,000 mcg tablet 1,000 mcg PO QMONTH C Complex 1,000 mg tablet extended release 1,000 mg PO DAILY cholecalciferol (vitamin D3) [D3 DOTS] 50 mcg (2,000 unit) tablet 50 mcg PO DAILY Mag Glycinate 100 mg tablet 200 mg PO DAILY levothyroxine [Levo-T] 50 mcg tablet 50 mcg PO DAILY Changed midodrine 5 mg tablet 10 mg PO TID Qty: 180 0RF Rx Instructions: do not give last dose of day after 6PM or within 4 hrs of bedtime Discharge Instructions Referrals: No,Local [Primary Care Provider] - (F/u with your PCP within 7 days of discharge) Activity:: Activity as Tolerated Equipment/Supplies:: Walker Diet:: heart healthy with liberal Na intake Discharge Orders Discharge Orders: Discharge Order (Routine); Ordered 10/13/23 Ordered By: Domitila Kelly DS: Summary Time Spent with Patient providing and/or coordinating discharge services: Greater than 30 minutes Status at Discharge Functional status at discharge: uses cane/walker Overall status at discharge: patient is back to baseline Mental Status: mental status grossly normal Speech and Movement: speech and movement normal Mood: congruent mood Affect: normal affect Quality:SDOH Health Related Social Needs: No Data to Display Exam Narrative Exam Narrative: Constitutional The patient in bed comfortable without acute distress Neuro:alert and oriented to self, person, place, time and situation. No neurological focal deficit Resp: unlabored breathing, clear lung bilaterally Cardio: regular rhythm, S1, S2, no murmur, bilateral radial and dorsalis pedis pulses are positive, no edema GI: Abdomen is not distended, soft and non tender, bowel sounds are present Back/spine/Pelvis: No back tenderness, normal alignment Integumentary: No skin lesions or rash Extremities: strength 5/5 to bilateral lower and upper extremities Psych: RASS 0, congruent mood and normal affect. Psych Mental Status: mental status grossly normal Speech and Movement: speech and movement normal Mood: congruent mood Affect: normal affect DS: Data Vitals/I&O Vitals and I&O: Vital Signs Temperature 36.8 C 10/13/23 15:30 Temperature Source Skin 10/13/23 15:30 Pulse 79 10/13/23 15:56 Pulse Rhythm Regular 10/13/23 15:37 Pulse 77 10/09/23 13:14 Respiratory Rate 17 10/13/23 15:30 Respiratory Effort Normal, Non-Labored 10/13/23 15:37 Respiratory Depth Normal 10/13/23 15:37 Respiratory Pattern Normal 10/13/23 15:37 Blood Pressure 142/82 H 10/13/23 15:56 Blood Pressure Mean 112 10/09/23 13:13 Blood Pressure Position Sitting 10/09/23 12:19 Pulse Oximetry 99 10/13/23 15:30 Oxygen Delivery Method Room Air 10/13/23 15:30 Oxygen Flow Rate 0 10/13/23 15:30 Pain Level 0 10/13/23 15:30 Comment Orthostatic vitals after 250 infusion of NS (standing) 10/13/23 11:44 Intake & Output 10/12/23 10/13/23 10/13/23 23:59 11:59 23:59 Intake Total 480 / 480 500 / 500 Balance 480 / 480 500 / 500 Weight 80.4 kg Intake: IV 250 / 250 Oral 480 / 480 250 / 250 Other: Urine Color Yellow Urine Appearance Clear Clear Clear Urine Odor None Comment 1 large unknown void Pt independent with toileting Voiding Methods Toilet Toilet Toilet Data Completed and Pending Labs on day of discharge: Labs from last 24 hours 10/13/23 06:10 WBC 5.27 RBC 4.31 Hgb 13.0 Hct 40.2 MCV 93 MCH 30.2 MCHC 32.3 RDW 13.2 Plt Count 213 MPV 9.8 Immature Gran % 0.4 Neutrophils % 54.4 Lymphocytes % 31.5 Monocytes % 9.9 Eosinophils % 3.0 Basophils % 0.8 Nucleated RBC % 0.0 Absolute Neutrophils 2.87 Absolute Lymphocytes 1.66 Absolute Monocytes 0.52 Absolute Eosinophils 0.16 Absolute Basophils 0.04 Sodium 141 Potassium 4.2 Chloride 103 Carbon Dioxide 30.0 Anion Gap 8.0 BUN 24 H Creatinine 0.9 Est GFR (CKD-EPI 2020) 64.63 Glucose 92 Calcium 9.5 Magnesium 2.2 PFSH All Active Problems (Updated 10/13/23 @ 13:29 by Domitila Kelly APRN) HFrEF (heart failure with reduced ejection fraction) (Acute) Orthostatic hypotension (Acute) Hypothyroid (Chronic) Pre-syncope (Acute) Dizziness of unknown cause (Acute) Social History Smoking/Tobacco Use Status: Never Smoking risk assessment performed?: Yes Alcohol Intake: current Alcohol Intake frequency: holidays/special occasions only Drug use: Never Substance use type: does not use Housing: house Time Spent with Patient Time Spent with Patient: >85 minutes Time was spent: preparing to see the patient(eg.review tests), obtaining and/or reviewing separately otained hiistory, ordering medications,tests, procedures, referring, communicating with other health health care attorney, indepentently interpreting results, counseling the patient and care coordination
--- NOTE | 2023-10-13 16:44 | CMDISCH_ITS ---
Date of service: 10/13/23 Time of Service: 16:44 LACE Index Scoring Tool Questions: Length of Stay (in days): 4 - 6 Was the patient admitted via the E.D.?: Yes E.D. Visits: 2 Answers: Total Score: 9 Risk of Readmission: Low Risk Care Management Discharge Plan Reason for Hospitalization: near syncope Discharge Plan: Demetrice will be discharged back to her family's home with no new services. She will follow up with her Manufacturing Controller and PCP in [place] when she returns home in October and she will transport via private vehicle with one of her many friends or relatives in the area. Patient/Family Education Needs: Review discharge instructions, medications, limitations, follow up plan and discuss Ask Me Three [facility] Health Related Social Needs: No Data to Display
== END 2023-10-13 17:15 | disposition home or self-care (01) | DRG 312 ==
LOC: ER 15:48 → MS 10-10 15:00
PROVIDERS: Nurse Practitioner Family; Admitting Provider Internal Medicine; Emergency Provider Emergency Medicine; Visit Provider Internal Medicine
DX: I95.1 Orthostatic hypotension (principal); I50.23 Acute on chronic systolic (congestive) heart failure; E03.9 Hypothyroidism, unspecified; Z86.73 Personal history of transient ischemic attack (TIA), and cerebral infarction without residual deficits; Z79.899 Other long term (current) drug therapy; I11.0 Hypertensive heart disease with heart failure; I44.7 Left bundle-branch block, unspecified
CPT/HCPCS: 00123; 36415; 80048; 80053; 93005; 96361; 96372; 96374; 97161; 99222; 99285; J1650; 70551; 71045; 81003; 83735; 83880; 84443; 84484; 85025; 93010; 93306; 99231; 99232; 99239; J1940

== ENCOUNTER → 2023-10-13 09:59 | Outpatient (BNVA) | payer MEDICARE, SELFPAY | PROVIDERS: Visit Provider Internal Medicine Cardiovascular Disease ==